=== PATIENT | female | born 1935 | race Caucasian/White ===

== ENCOUNTER 2016-10-12 07:47 | Day surgery (SDC) | payer MEDICARE, OTHER ==
[~2016-10-12 07:47] MED LIST: Brimonidine 0.2% Ophth Soln 5 ML Bottle ONE; Cataract Ophth Solution EYERT PRN; Hypromellose 2.5% Ophth Soln 15 ML Bottle EYERT PRN; Lactated Ringers 1,000 ML IV SCH; Lidocaine 1% 2 ML ONE; Lidocaine 3.5% Ophth Gel 1 ML Bottle ONE; Povidone-Iodine 5% Sterile Ophth Soln 30 ML Bottle ONE
[2016-10-12] MEDS: Proparacaine 0.5% Ophth Soln 15 ML Bottle EYERT PRN ×2 (08:15→09:46)
[2016-10-12] MEDS ORDERED: Midazolam 1 MG/ML 2 ML SDV ONE (09:11)
[2016-10-12] MEDS ORDERED: Lidocaine 1% PF 2 ML SDV INJECT ONE (09:46)
[2016-10-12] MEDS ORDERED: Moxifloxacin 0.5% Ophth Soln 3 ML Bottle EYERT ONE (09:47)
[2016-10-12] MEDS ORDERED: Chondroitin Sulfate/Hyaluronate Sodium Ophth Inj 0.5 ML Syringe IOCULAR ONE (09:47)
[2016-10-12] MEDS ORDERED: Balanced Salt Solution Ophth Irrig 500 ML Bottle IOCULAR ONE (09:48)
[2016-10-12] MEDS ORDERED: Vancomycin 500 MG SDV EYERT ONE (09:48)
[2016-10-12 10:23] VITALS: BP 156/71
--- NOTE | 2016-10-12 12:35 | OR ---
PREOPERATIVE DIAGNOSIS: Senile nuclear cataract, right eye. POSTOPERATIVE DIAGNOSIS: Pseudophakia, right eye. PROCEDURE PERFORMED: Cataract extraction with intraocular lens implantation by phacoemulsification technique, right eye. ANESTHESIA: Topical anesthesia. ESTIMATED BLOOD LOSS: None. COMPLICATIONS: None. INDICATIONS: The patient is a 81-year-old female who was found to have a senile nuclear cataract, reducing her best corrected visual acuity. After explaining the risks, benefits, and alternatives of cataract surgery, an informed consent was obtained. DESCRIPTION OF PROCEDURE: After identifying the patient in the preoperative area, the patient was brought to the operating room. The patient was prepped and draped in a sterile fashion. A lid speculum was inserted into the eye. The microscope was brought into the field. Lidocaine gel was applied to the external surface of the eye. A paracentesis was made 3 clock hours away from the surgeon's operating hand. The anterior chamber was anesthetized with preservative-free Lidocaine. The anterior chamber was filled with Viscoat. A clear corneal incision was made at the 180-degree meridian with a 2.75 mm keratome. A continuous tear circular capsulorrhexis was performed. The nucleus was hydrodissected with balanced salt solution. The nucleus was sculpted and removed from the eye using a divide and conquer technique with the phacoemulsification handpiece. The residual viscoelastic was removed with the I/A handpiece. The anterior chamber and capsular bag were filled with Amvisc. An ELSIE lens, model PCB00 with a power of 18.5 Diopters and a serial number of [id number] was injected into the capsular bag. The lens was rotated completely into the capsular bag with a Sinskey hook. The residual viscoelastic was removed with the I/A handpiece. The anterior chamber was filled with balanced salt solution to a physiologic pressure. The corneal wound was closed with stromal hydration and seen to be water tight by Weck-Lorena sponge testing. The patient received a drop of Zymar and Alphagan at the end of the case. There were no complications of this case. The patient will be followed postoperatively by Dr. Sara Hernandez. SKA: 10/12/2016 10:02:17 MODL: 10/12/2016 12:26:36 /[id number]
== END 2016-10-12 10:40 | disposition home or self-care (01) ==
LOC: VM.SDS 07:47
PROVIDERS: ATTEND Ophthalmology
DX: H25.11 Age-related nuclear cataract, right eye (principal); Z96.1 Presence of intraocular lens; I10 Essential (primary) hypertension; E03.9 Hypothyroidism, unspecified; E78.5 Hyperlipidemia, unspecified; Z79.899 Other long term (current) drug therapy; Z88.8 Allergy status to other drugs, medicaments and biological substances; F33.0 Major depressive disorder, recurrent, mild; R73.9 Hyperglycemia, unspecified; E55.9 Vitamin D deficiency, unspecified; E87.1 Hypo-osmolality and hyponatremia; Z90.49 Acquired absence of other specified parts of digestive tract; Z98.890 Other specified postprocedural states
CPT/HCPCS: 00142; 66984; A9270; J2250; J3370; J7120; V2632

== ENCOUNTER 2016-11-09 12:26 | Day surgery (SDC) | payer MEDICARE, OTHER ==
[~2016-11-09 12:26] MED LIST changes: +Cataract Ophth Solution EYELF PRN; -Cataract Ophth Solution EYERT PRN; +Hypromellose 2.5% Ophth Soln 15 ML Bottle EYELF PRN; -Hypromellose 2.5% Ophth Soln 15 ML Bottle EYERT PRN; -Lactated Ringers 1,000 ML IV SCH; +Sodium Chloride 0.9% 10 ML Syringe FLUSH PRN
[2016-11-09] MEDS: Proparacaine 0.5% Ophth Soln 15 ML Bottle EYELF PRN ×2 (12:50→14:36)
[2016-11-09] MEDS ORDERED: Lidocaine 1% PF 2 ML SDV INFILT ONE (14:36)
[2016-11-09] MEDS ORDERED: Moxifloxacin 0.5% Ophth Soln 3 ML Bottle EYELF ONE (14:38)
[2016-11-09] MEDS ORDERED: Chondroitin Sulfate/Hyaluronate Sodium Ophth Inj 0.5 ML Syringe IOCULAR ONE (14:38)
[2016-11-09] MEDS ORDERED: Balanced Salt Solution Ophth Irrig 500 ML Bottle IOCULAR ONE (14:39)
[2016-11-09] MEDS ORDERED: Vancomycin 500 MG SDV EYELF ONE (14:39)
[2016-11-09] MEDS ORDERED: Midazolam 1 MG/ML 2 ML SDV ONE (14:43)
[2016-11-09 15:39] VITALS: BP 150/62
--- NOTE | 2016-11-09 22:16 | OR ---
PREOPERATIVE DIAGNOSIS: Senile nuclear cataract, left eye. POSTOPERATIVE DIAGNOSIS: Pseudophakia, left eye. PROCEDURE PERFORMED: Cataract extraction with intraocular lens implantation by phacoemulsification technique, left eye. ANESTHESIA: Topical anesthesia. BLOOD LOSS: None. COMPLICATIONS: None. INDICATIONS: The patient is a 81-year-old female, who was found to have a senile nuclear cataract reducing her best corrected visual acuity. After explaining the risks, benefits, and alternatives of cataract surgery, an informed consent was obtained. DESCRIPTION OF PROCEDURE: After identifying the patient in the preoperative area, the patient was brought to the operating room. The patient was prepped and draped in a sterile fashion. A lid speculum was inserted into the eye. The microscope was brought into the field. Lidocaine gel was applied to the external surface of the eye. A paracentesis was made 3 clock hours away from the surgeon's operating hand. The anterior chamber was anesthetized with preservative-free Lidocaine. The anterior chamber was filled with Viscoat. A clear corneal incision was made at the 180-degree meridian with a 2.75mm keratome. A continuous tear circular capsulorrhexis was performed. The nucleus was hydrodissected with balanced salt solution. The nucleus was sculpted and removed from the eye using a divide and conquer technique with the phacoemulsification handpiece. The residual viscoelastic was removed with the I/A handpiece. The anterior chamber and capsular bag were filled with Amvisc. An ELSIE lens, model ZCB00 with a power of 17.5 Diopters and a serial number of [id number] was injected into the capsular bag. The lens was rotated completely into the capsular bag with a Sinskey hook. The residual viscoelastic was removed with the I/A handpiece. The anterior chamber was filled with balanced salt solution to a physiologic pressure. The corneal wound was closed with stromal hydration and seen to be water tight by Weck-Lorena sponge testing. The patient received a drop of Zymar and Alphagan at the end of the case. There were no complications of this case. The patient will be followed postoperatively by Dr. Sara Hernandez. SKA: 11/09/2016 15:04:53 MODL: 11/09/2016 22:11:59 /[id number]
== END 2016-11-09 15:30 | disposition home or self-care (01) ==
LOC: VM.SDS 12:26
PROVIDERS: ATTEND Ophthalmology
DX: H25.12 Age-related nuclear cataract, left eye (principal); I10 Essential (primary) hypertension; E03.9 Hypothyroidism, unspecified; F32.9 Major depressive disorder, single episode, unspecified; E78.5 Hyperlipidemia, unspecified; K21.9 Gastro-esophageal reflux disease without esophagitis; Z96.1 Presence of intraocular lens; Z88.1 Allergy status to other antibiotic agents; Z88.2 Allergy status to sulfonamides; Z88.8 Allergy status to other drugs, medicaments and biological substances; Z91.041 Radiographic dye allergy status; Z90.49 Acquired absence of other specified parts of digestive tract; Z98.890 Other specified postprocedural states
CPT/HCPCS: 00142; 66984; A9270; J2250; J3370; V2632

== ENCOUNTER 2016-11-24 06:52 | Day surgery (SDC) | payer MEDICARE, OTHER ==
[~2016-11-24 06:52] MED LIST changes: -Brimonidine 0.2% Ophth Soln 5 ML Bottle ONE; -Cataract Ophth Solution EYELF PRN; -Hypromellose 2.5% Ophth Soln 15 ML Bottle EYELF PRN; +Lactated Ringers 1,000 ML IV SCH; -Lidocaine 1% 2 ML ONE; -Lidocaine 3.5% Ophth Gel 1 ML Bottle ONE; -Povidone-Iodine 5% Sterile Ophth Soln 30 ML Bottle ONE; -Sodium Chloride 0.9% 10 ML Syringe FLUSH PRN
[2016-11-24] MEDS ORDERED: Albuterol/Ipratropium 3.0-0.5 MG/3 ML Neb Soln NEB ONE (07:41)
[2016-11-24] MEDS ORDERED: fentaNYL 100 MCG/2 ML SDV ONE (07:56)
[2016-11-24] MEDS ORDERED: Propofol 200 MG/20 ML SDV ONE (07:56)
[2016-11-24 10:06] VITALS: BP 149/57
--- NOTE | 2016-11-24 14:18 | OR ---
DATE OF SURGERY: 11/24/2016. REFERRING PROVIDER: Cynthia Hargrove MD. PRE-OPERATIVE DIAGNOSES: History of colon polyps. The patient does have history of 2 larger sessile polyps at 120 cm and 80 cm from the anal verge. I had previously done colonoscopies on her on 11/20/2014 and 05/21/2015. These reports were reviewed. The patient is status post right hemicolectomy with Dr. Lewis on 07/27/2015 for these larger sessile polyps. No family history of colon cancer. POST-OPERATIVE DIAGNOSES: 1. Significant left-sided diverticulosis without any evidence of inflammation. 2. Moderate hemorrhoids internal and external. 3. Normal right-sided ileocolonic anastomosis. PROCEDURE: Colonoscopy. SURGEON: Frandy Harry M.D. ANESTHESIA: Monitored anesthesia care. BOWEL PREP: Good. DESCRIPTION OF OPERATION: Honey is a 81-year-old female. The patient was brought to the endoscopy suite after discussing risks and benefits of the procedure. Informed consent was obtained for conscious sedation and colonoscopy with or without biopsy and/or polypectomy. We also discussed possibility of missed lesions. Pre-procedure exam was unremarkable. IV, oxygen, and monitors were placed. The patient was placed in the left lateral decubitus position. Sedation was administered and a digital rectal exam performed and was remarkable for some moderate external hemorrhoids. These were not acutely inflamed. Colonoscope was passed into the rectum and slowly advanced all the way to the ileocolic anastomosis on the right side. The ileocolic anastomosis was viewed and photographed. The distal small intestine mucosa was normal as well. The colonoscope was slowly withdrawn and the mucosa was closed observed in a direct circumferential manner. Ascending colon was unremarkable. Transverse colon was unremarkable. The descending and sigmoid colon were remarkable for significant diverticulosis. Retroflexion was performed. Rectal mucosa was remarkable for moderate internal hemorrhoids, not acutely inflamed. Scope was removed. The patient tolerated the procedure well. The patient was monitored until that baseline status. Discharge instructions were reviewed and the patient was discharged in good condition. COMPLICATIONS: None. TOTAL TIME: 15 minutes. ESTIMATED BLOOD LOSS: None. RECOMMENDATIONS/FOLLOWUP: Given her history of 2 larger sessile polyps requiring right hemicolectomy, we could consider repeating colonoscopy in 3 years depending on her health status and the patient preference at that time. I would like to kindly thank Dr. Hargrove for this referral. DMB: 11/24/2016 11:54:36 MODL: 11/24/2016 14:12:43 /[id number]
== END 2016-11-24 11:16 | disposition home or self-care (01) ==
LOC: VM.SDS 06:52
PROVIDERS: ATTEND Family Medicine
DX: Z12.11 Encounter for screening for malignant neoplasm of colon (principal); Z86.010 Personal history of colon polyps; K64.4 Residual hemorrhoidal skin tags; K64.8 Other hemorrhoids; K57.30 Diverticulosis of large intestine without perforation or abscess without bleeding; Z88.1 Allergy status to other antibiotic agents; Z88.2 Allergy status to sulfonamides; Z88.8 Allergy status to other drugs, medicaments and biological substances; Z91.041 Radiographic dye allergy status; I10 Essential (primary) hypertension; J45.20 Mild intermittent asthma, uncomplicated; E03.9 Hypothyroidism, unspecified; E78.5 Hyperlipidemia, unspecified; F33.0 Major depressive disorder, recurrent, mild; R73.9 Hyperglycemia, unspecified; E55.9 Vitamin D deficiency, unspecified; Z79.899 Other long term (current) drug therapy; K21.9 Gastro-esophageal reflux disease without esophagitis; Z90.49 Acquired absence of other specified parts of digestive tract; Z98.890 Other specified postprocedural states
CPT/HCPCS: 94640; G0105; J2704; J3010; J7120; 00810

== ENCOUNTER 2016-12-03 19:10 | Emergency (ER) | payer MEDICARE, OTHER ==
[2016-12-03 19:16] VITALS: BP 166/90
[2016-12-03] MEDS ORDERED: Ketorolac 10 MG Tab PO ONE (19:27)
[2016-12-03] MEDS ORDERED: traMADol 50 MG Tab PO ONE (19:27)
--- NOTE | 2016-12-03 19:41 | EDM.PDOC ---
ED HPI GENERAL MEDICAL PROBLEM - General Chief Complaint: Lower Extremity Injury/Pain Stated Complaint: left ankle pain Time Seen by Provider: 12/03/16 19:20 Source of Information: Reports: Patient History Limitations: Reports: No Limitations - History of Present Illness INITIAL COMMENTS - FREE TEXT/NARRATIVE: Patient presents after falling in her bathroom. She fell onto her left ankle. It is bruised and swollen. She has no other complaints. She denies hitting her head or a loss of consciousness. Reduced range of motion. Onset: Today Location: Reports: Lower Extremity, Left Quality: Reports: Ache, Sharp Severity: Moderate Worsens with: Reports: Movement Associated Symptoms: Reports: No Other Symptoms Left Ankle Pain Score (Numeric/FACES): 4 - Related Data Allergies Allergy/AdvReac Type Severity Reaction Status Date / Time amoxicillin trihydrate Allergy Other Verified 12/03/16 19:21 [From Augmentin] erythromycin base Allergy Other Verified 12/03/16 19:21 potassium Allergy Other Verified 12/03/16 19:21 potassium clavulanate Allergy Other Verified 12/03/16 19:21 [From Augmentin] sulfamethoxazole Allergy Rash Verified 12/03/16 19:21 [From Bactrim] trimethoprim [From Bactrim] Allergy Rash Verified 12/03/16 19:21 yellow dye Allergy Other Verified 12/03/16 19:21 Home Meds: Home Meds Bisoprolol Fumarate/HCTZ [Ziac 5-6.25 MG] 1 tab PO DAILY 01/21/14 [History] Levothyroxine [Synthroid] 50 mcg PO ACBRK 01/21/14 [History] atorvaSTATin [Lipitor] 10 mg PO BEDTIME 01/21/14 [History] FLUoxetine [PROzac] 20 mg PO DAILY 01/25/14 [History] Cholecalciferol (Vitamin D3) [Vitamin D3] 1 cap PO DAILY 11/14/14 [History] Albuterol/Ipratropium [DuoNeb 3.0-0.5 MG/3 ML] 3 ml INH QID PRN 10/07/16 [ History] Cranberry Extract/Vit C [Azo Cranberry Softgel] 1 each PO DAILY 12/03/16 [ History] Fluticasone/Vilanterol [Breo Ellipta 100-25 MCG Inhalation Kit] 1 each IH ASDIRECTED 12/03/16 [History] Ibuprofen [Advil] 1 - 3 tab PO TID PRN 12/03/16 [History] Propylene Glycol/PEG 400/Pf [Systane Ultra 0.4-0.3% Eye Drp] 1 each OP ASDIRECTED 12/03/16 [History] Past Medical History HEENT History: Reports: Cataract Other HEENT History: nasal polyps Cardiovascular History: Reports: Blood Clots/VTE/DVT, High Cholesterol, Hypertension Other Cardiovascular History: vericose veins, hyponatremia Respiratory History: Reports: Asthma, Bronchitis, Recurrent Gastrointestinal History: Reports: Colon Polyp, Diverticulosis, GERD Other Gastrointestinal History: hx colon polyps. liver function Genitourinary History: Reports: Urinary Incontinence B[employer] W[employer]ER TENDER History: Reports: None Musculoskeletal History: Reports: Arthritis, Back Pain, Chronic Neurological History: Reports: Other (See Below) Other Neuro History: insomnia Psychiatric History: Reports: Depression, Other (See Below) Other Psychiatric History: insomnia Endocrine/Metabolic History: Reports: Hypothyroidism, Vitamin D Deficiency, Other (See Below) Other Endocrine/Metabolic History: hyperglycemia Hematologic History: Reports: Other (See Below) Other Hematologic History: thrombophlebitits Immunologic History: Reports: None Oncologic (Cancer) History: Reports: None Dermatologic History: Reports: Eczema - Past Surgical History Head Surgeries/Procedures: Reports: None HEENT Surgical History: Reports: Adenoidectomy, Tonsillectomy, Other (See Below) Other HEENT Surgeries/Procedures: nasal polyps Cardiovascular Surgical History: Reports: None Respiratory Surgical History: Reports: None GI Surgical History: Reports: Cholecystectomy, Colon, Colonoscopy Female Surgical History: Reports: None Endocrine Surgical History: Reports: None Neurological Surgical History: Reports: None, Other (See Below) Other Neurological Surgeries/Procedures: L5 radiculopathy Musculoskeletal Surgical History: Reports: Hip Replacement Other Musculoskeletal Surgeries/Procedures:: trigger finger release Oncologic Surgical History: Reports: None Dermatological Surgical History: Reports: None Social & Family History - Tobacco Use Smoking Status *Q: Never Smoker Second Hand Smoke Exposure: No - Alcohol Use Days Per Week of Alcohol Use: 0 - Recreational Drug Use Recreational Drug Use: No Drug Use in Last 12 Months: No Review of Systems - Review of Systems Review Of Systems: ROS reveals no pertinent complaints other than HPI. ED EXAM, GENERAL - Physical Exam Exam: See Below Exam Limited By: No Limitations General Appearance: Alert, WD/WN, Mild Distress Eye Exam: Bilateral Eye: EOMI, PERRL Head: Atraumatic, Normocephalic Neck: Normal Inspection Peripheral Pulses: 2+: Posterior Tibial (L), Posterior Tibial (R), Dorsalis Pedis (L), Dorsalis Pedis (R) Extremities: Pedal Edema, Joint Swelling, Leg Pain (left ankle) Neurological: Alert, Oriented, CN II-XII Intact, Normal Cognition, No Motor/ Sensory Deficits Psychiatric: Normal Affect, Normal Mood Course - Vital Signs Last Recorded V/S: Last Vital Signs Temp 37.4 C 12/03/16 19:12 Pulse 65 12/03/16 19:12 Resp 20 12/03/16 19:12 BP 166/90 H 12/03/16 19:12 Pulse Ox 94 L 12/03/16 19:12 - Orders/Labs/Meds Orders: Active Orders 24 hr Category Date Time Status Ankle Min 3V Lt [CR] Stat Exams 12/03/16 19:26 Ordered Ketorolac [Toradol] Med 12/03/16 19:27 Once 10 mg PO ONETIME ONE traMADol [Ultram] Med 12/03/16 19:27 Once 100 mg PO ONETIME ONE Meds: Medications Discontinued Medications Generic Name Dose Route Start Last Admin Trade Name Freq PRN Reason Stop Dose Admin Ketorolac Tromethamine 10 mg 12/03/16 19:27 Toradol PO 12/03/16 19:28 ONETIME ONE Tramadol HCl 100 mg 12/03/16 19:27 Ultram PO 12/03/16 19:28 ONETIME ONE - Radiology Interpretation Free Text/Narrative:: review of x-ray with Dr. Fernando from [facility]. Agreed on plan to stirrup splint, and follow up with ortho or podiatry this week. Departure - Departure Time of Disposition: 20:44 Disposition: Home, Self-Care 01 Condition: Good Clinical Impression: Fx lateral malleolus-closed - Discharge Information Instructions: Cast or Splint Care, [id number], Ankle Fracture, [id number] Forms: ED Department Discharge Additional Instructions: You have a left lateral malleolus fracture. Keep it elevated, put ice on the area and keep your splint dry. Take your hydrocodone 1 tablet every 4-6 hours for your pain. You can also take ibuprofen or aleve. Use your walker to get around your apartment and make sure all floor rugs are picked to reduce your risk of falling. You are to call [facility] on Monday to schedule an appointment with either one of the orthopedic doctors or a story editor. Depending on who can see you this week. The oncall doctor I spoke with today was Dr. Fernando. If you develop pain that is not controlled, and severe from now until your appointment, make sure to come back in for evaluation. [facility] Orthopedic clinic: [phone] [facility] Podiatry clinic: [phone] - Problem List & Annotations (1) Fx lateral malleolus-closed SNOMED Code(s): 92346358 Code(s): S82.63XA - DISP FX OF LATERAL MALLEOLUS OF UNSP FIBULA, INIT Status: Acute Priority: Low Current Visit: Yes Qualifiers: Encounter type: initial encounter Fracture alignment: displaced Laterality: left Qualified Code(s): S82.62XA - Displaced fracture of lateral malleolus of left fibula, initial encounter for closed fracture - Problem List Review Problem List Initiated/Reviewed/Updated: Yes - My Orders Last 24 Hours: My Active Orders 12/03/16 19:26 Ankle Min 3V Lt [CR] Stat 12/03/16 19:27 Ketorolac [Toradol] 10 mg PO ONETIME ONE traMADol [Ultram] 100 mg PO ONETIME ONE - Assessment/Plan Last 24 Hours: My Active Orders 12/03/16 19:26 Ankle Min 3V Lt [CR] Stat 12/03/16 19:27 Ketorolac [Toradol] 10 mg PO ONETIME ONE traMADol [Ultram] 100 mg PO ONETIME ONE Assessment:: left lateral malleolus fracture Plan: You have a left lateral malleolus fracture. Keep it elevated, put ice on the area and keep your splint dry. Take your hydrocodone 1 tablet every 4-6 hours for your pain. You can also take ibuprofen or aleve. Use your walker to get around your apartment and make sure all floor rugs are picked to reduce your risk of falling. You are to call [facility] on Monday to schedule an appointment with either one of the orthopedic doctors or a story editor. Depending on who can see you this week. The oncall doctor I spoke with today was Dr. Fernando. If you develop pain that is not controlled, and severe from now until your appointment, make sure to come back in for evaluation. [facility] Orthopedic clinic: [phone] [facility] Podiatry clinic: [phone]
[2016-12-03] MEDS ORDERED: Take Home: Acetaminophen/oxyCODONE 325-5 MG, 5 Tab Pack PO ONE (20:35)
== END 2016-12-03 20:50 | disposition home or self-care (01) ==
LOC: VM.ED 19:10
DX: S82.62XA Displaced fracture of lateral malleolus of left fibula, initial encounter for closed fracture (principal); E78.00 Pure hypercholesterolemia, unspecified; I10 Essential (primary) hypertension; J45.909 Unspecified asthma, uncomplicated; K21.9 Gastro-esophageal reflux disease without esophagitis; E03.9 Hypothyroidism, unspecified; F32.9 Major depressive disorder, single episode, unspecified; Z90.49 Acquired absence of other specified parts of digestive tract; Z96.649 Presence of unspecified artificial hip joint; Z88.1 Allergy status to other antibiotic agents; Z88.2 Allergy status to sulfonamides; Z88.8 Allergy status to other drugs, medicaments and biological substances; Z91.041 Radiographic dye allergy status; Z79.899 Other long term (current) drug therapy; W19.XXXA Unspecified fall, initial encounter; Y92.002 Bathroom of unspecified non-institutional (private) residence as the place of occurrence of the external cause
CPT/HCPCS: 29515; 73610; 99283; A9270

== ENCOUNTER 2016-12-20 15:16 | Emergency (ER) | payer MEDICARE, OTHER ==
--- NOTE | 2016-12-20 15:48 | EDM.PDOC ---
ED HPI GENERAL MEDICAL PROBLEM - General Chief Complaint: ENT Problem Stated Complaint: THROAT Time Seen by Provider: 12/20/16 15:18 Source of Information: Reports: Patient, Family, RN, RN Notes Reviewed History Limitations: Reports: No Limitations - History of Present Illness INITIAL COMMENTS - FREE TEXT/NARRATIVE: Patient is brought to the ED at [facility] with possible oral thrush. Patient was recently started on Breo inhaler three days ago. Patient noticed white spots on her tongue and upper palate. Onset: Today - Related Data Allergies Allergy/AdvReac Type Severity Reaction Status Date / Time amoxicillin trihydrate Allergy Other Verified 12/20/16 15:26 [From Augmentin] erythromycin base Allergy Other Verified 12/20/16 15:26 potassium Allergy Other Verified 12/20/16 15:26 potassium clavulanate Allergy Other Verified 12/20/16 15:26 [From Augmentin] sulfamethoxazole Allergy Rash Verified 12/03/16 19:21 [From Bactrim] trimethoprim [From Bactrim] Allergy Rash Verified 12/03/16 19:21 yellow dye Allergy Other Verified 12/03/16 19:21 Home Meds: Home Meds Bisoprolol Fumarate/HCTZ [Ziac 5-6.25 MG] 1 tab PO DAILY 01/21/14 [History] Levothyroxine [Synthroid] 50 mcg PO ACBRK 01/21/14 [History] atorvaSTATin [Lipitor] 10 mg PO BEDTIME 01/21/14 [History] FLUoxetine [PROzac] 20 mg PO DAILY 01/25/14 [History] Cholecalciferol (Vitamin D3) [Vitamin D3] 1 cap PO DAILY 11/14/14 [History] Albuterol/Ipratropium [DuoNeb 3.0-0.5 MG/3 ML] 3 ml INH QID PRN 10/07/16 [ History] Cranberry Extract/Vit C [Azo Cranberry Softgel] 1 each PO DAILY 12/03/16 [ History] Fluticasone/Vilanterol [Breo Ellipta 100-25 MCG Inhalation Kit] 1 each IH ASDIRECTED 12/03/16 [History] Ibuprofen [Advil] 1 - 3 tab PO TID PRN 12/03/16 [History] Propylene Glycol/PEG 400/Pf [Systane Ultra 0.4-0.3% Eye Drp] 1 each OP ASDIRECTED 12/03/16 [History] Nystatin [Mycostatin] 5 ml PO QID #40 cup 12/20/16 [Rx] Past Medical History HEENT History: Reports: Cataract Other HEENT History: nasal polyps Cardiovascular History: Reports: Blood Clots/VTE/DVT, High Cholesterol, Hypertension Other Cardiovascular History: vericose veins, hyponatremia Respiratory History: Reports: Asthma, Bronchitis, Recurrent Gastrointestinal History: Reports: Colon Polyp, Diverticulosis, GERD Other Gastrointestinal History: hx colon polyps. liver function Genitourinary History: Reports: Urinary Incontinence GLOVE CLEANER History: Reports: None Musculoskeletal History: Reports: Arthritis, Back Pain, Chronic Neurological History: Reports: Other (See Below) Other Neuro History: insomnia Psychiatric History: Reports: Depression, Other (See Below) Other Psychiatric History: insomnia Endocrine/Metabolic History: Reports: Hypothyroidism, Vitamin D Deficiency, Other (See Below) Other Endocrine/Metabolic History: hyperglycemia Hematologic History: Reports: Other (See Below) Other Hematologic History: thrombophlebitits Immunologic History: Reports: None Oncologic (Cancer) History: Reports: None Dermatologic History: Reports: Eczema - Past Surgical History Head Surgeries/Procedures: Reports: None HEENT Surgical History: Reports: Adenoidectomy, Tonsillectomy, Other (See Below) Other HEENT Surgeries/Procedures: nasal polyps GI Surgical History: Reports: Cholecystectomy, Colon, Colonoscopy Neurological Surgical History: Reports: Other (See Below) Other Neurological Surgeries/Procedures: L5 radiculopathy Musculoskeletal Surgical History: Reports: Hip Replacement Other Musculoskeletal Surgeries/Procedures:: trigger finger release Oncologic Surgical History: Reports: None Social & Family History - Tobacco Use Smoking Status *Q: Unknown Ever Smoked Second Hand Smoke Exposure: No - Alcohol Use Days Per Week of Alcohol Use: 0 - Recreational Drug Use Recreational Drug Use: No Drug Use in Last 12 Months: No ED ROS ENT - Review of Systems Review Of Systems: See Below Constitutional: Denies: Fever, Chills, Weakness HEENT: Reports: Other (white patches in throat) Respiratory: Denies: Shortness of Breath, Cough Skin: Reports: No Symptoms Neurological: Reports: No Symptoms ED EXAM, ENT - Physical Exam Exam: See Below Exam Limited By: No Limitations General Appearance: Alert, No Apparent Distress Mouth/Throat: Dry Mucous Membrane, Other (grouped white patches over tongue and left upper palate consistent with oral candidiasis) Respiratory/Chest: No Respiratory Distress, Lungs Clear, Normal Breath Sounds Cardiovascular: Regular Rate, Rhythm Neurological: Alert, Oriented Skin: Warm, Dry, Intact, Normal Color, No Rash Course - Vital Signs Last Recorded V/S: Last Vital Signs Temp 36.5 C 12/20/16 15:18 Pulse 64 12/20/16 15:18 Resp 14 12/20/16 15:18 BP 144/58 H 12/20/16 15:18 Pulse Ox 97 12/20/16 15:18 Departure - Departure Time of Disposition: 15:58 Disposition: Home, Self-Care 01 Condition: Good Clinical Impression: Oral candidiasis - Discharge Information Prescriptions: Nystatin [Mycostatin] 5 ml PO QID #40 cup Instructions: Thrush, Adult Referrals: Cynthia Hargrove MD [Primary Care Provider] - Forms: ED Department Discharge Additional Instructions: 1. Stay well hydrated and rest 2. Use swish and swallow medication 4 times a day 3. Buy a new toothbrush 4. Rinse and clean breathing containers 5. See your Primary as needed - Problem List Review Problem List Initiated/Reviewed/Updated: Yes
== END 2016-12-20 16:15 | disposition home or self-care (01) ==
LOC: VM.ED 15:16
CPT/HCPCS: 99282; 99282-GF

== ENCOUNTER 2020-07-11 09:35 | Observation (INO) | payer MEDICARE, OTHER ==
[2020-07-11] MEDS ORDERED: Acetaminophen 500 MG Tab PO ONE (09:58)
[2020-07-11] MEDS ORDERED: cloNIDine 0.1 MG Tab PO ONE (10:16)
[2020-07-11 10:41] LABS: CHLORIDE,CL 93 mmol/L (98-107)
[2020-07-11 10:42] LABS: ANION GAP 13.2 mmol/L (5-15); SODIUM,NA 128 mmol/L (136-145)
--- NOTE | 2020-07-11 10:42 | EDM.PDOC ---
ED HPI GENERAL MEDICAL PROBLEM - General Chief Complaint: Headache Stated Complaint: HEADACHES Time Seen by Provider: 07/11/20 09:45 Source of Information: Reports: Patient History Limitations: Reports: No Limitations - History of Present Illness INITIAL COMMENTS - FREE TEXT/NARRATIVE: Pt. presents to ER with complaints of headache for the past month. Pt. states that it is frontal in nature, but also complains of lateral cervical/occipital pain as well. She has had a telehealth visit for this earlier this month. She had a covid test at that time with no futher workup. She has not had her blood pressure checked for some time. Pt. denies any nausea or vomiting. She states that she has no new focal neuro symptoms. She chronically had some paresthesia in her R hand likely due to carpal tunnel or other peripheral ideology, but this has been going on for some time. Denies any new paresthesia in face or extremities. She states that her gait and speech are normal (daughter affirms this). Pt. states that the discomfort is intermittent in nature. Today, her pain is approx. 3 on 1-10 scale. She has taken tylenol for this and it has helped. She denies any chest pain, shortness of breath, lightheadedness, nausea, vomiting, diarrhea. She states that she has been more fatigued in the past several months. Headache Pain Score (Numeric/FACES): 3 - Related Data Allergies Allergy/AdvReac Type Severity Reaction Status Date / Time amoxicillin trihydrate Allergy Other Verified 07/11/20 11:06 [From Augmentin] erythromycin base Allergy Other Verified 07/11/20 11:06 potassium Allergy Other Verified 07/11/20 11:06 potassium clavulanate Allergy Other Verified 07/11/20 11:06 [From Augmentin] sulfamethoxazole Allergy Rash Verified 07/11/20 11:06 [From Bactrim] trimethoprim [From Bactrim] Allergy Rash Verified 07/11/20 11:06 yellow dye Allergy Other Verified 07/11/20 11:06 Home Meds: Home Meds Bisoprolol/Hydrochlorothiazide [Ziac 5-6.25 MG] 1 tab PO DAILY 01/21/14 [History] Levothyroxine [Synthroid] 75 mcg PO ACBRK 01/21/14 [History] atorvaSTATin [Lipitor] 10 mg PO BEDTIME 01/21/14 [History] FLUoxetine [PROzac] 20 mg PO DAILY 01/25/14 [History] Cholecalciferol (Vitamin D3) [Vitamin D3] 1 cap PO DAILY 11/14/14 [History] Albuterol/Ipratropium [DuoNeb 3.0-0.5 MG/3 ML] 3 ml INH QID 10/07/16 [History] Fluticasone/Vilanterol [Breo Ellipta 100-25 MCG Inhalation Kit] 1 each IH DAILY 12/03/16 [History] Ibuprofen [Advil] 1 - 3 tab PO TID PRN 12/03/16 [History] Propylene Glycol/PEG 400/Pf [Systane Ultra 0.4-0.3% Eye Drp] 1 drop EYELF BID 12/03/16 [History] Loratadine [Claritin] 10 mg PO DAILY PRN 07/11/20 [History] Past Medical History HEENT History: Reports: Cataract Other HEENT History: nasal polyps Cardiovascular History: Reports: Blood Clots/VTE/DVT, High Cholesterol, Hypertension Other Cardiovascular History: vericose veins, hyponatremia Respiratory History: Reports: Asthma, Bronchitis, Recurrent Gastrointestinal History: Reports: Colon Polyp, Diverticulosis, GERD Other Gastrointestinal History: hx colon polyps. 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 Musculoskeletal History: Reports: Arthritis, Back Pain, Chronic Neurological History: Reports: Other (See Below) Other Neuro History: insomnia Psychiatric History: Reports: Depression, Other (See Below) Other Psychiatric History: insomnia Endocrine/Metabolic History: Reports: Hypothyroidism, Vitamin D Deficiency, Other (See Below) Other Endocrine/Metabolic History: hyperglycemia Hematologic History: Reports: Other (See Below) Other Hematologic History: thrombophlebitits Immunologic History: Reports: None Oncologic (Cancer) History: Reports: None Dermatologic History: Reports: Eczema - Past Surgical History HEENT Surgical History: Reports: Adenoidectomy, Tonsillectomy, Other (See Below) Other HEENT Surgeries/Procedures: nasal polyps Cardiovascular Surgical History: Reports: None GI Surgical History: Reports: Cholecystectomy, Colon, Colonoscopy Neurological Surgical History: Reports: Other (See Below) Other Neurological Surgeries/Procedures: L5 radiculopathy Musculoskeletal Surgical History: Reports: Hip Replacement Other Musculoskeletal Surgeries/Procedures:: trigger finger release Social & Family History - Tobacco Use Tobacco Use Status *Q: Never Tobacco User ED ROS GENERAL - Review of Systems Review Of Systems: See Below Constitutional: Reports: Fatigue. Denies: Fever, Chills, Malaise, Weakness, Night Sweats, Diaphoresis, Weight Loss HEENT: Reports: No Symptoms. Denies: Vertigo Respiratory: Reports: No Symptoms Cardiovascular: Reports: Blood Pressure Problem Endocrine: Reports: No Symptoms GI/Abdominal: Reports: No Symptoms : Reports: No Symptoms Musculoskeletal: Reports: No Symptoms Skin: Reports: No Symptoms Neurological: Reports: Headache, Tingling (chronically in R hand). Denies: Confusion, Dizziness, Numbness, Paresthesia, Seizure, Syncope Psychiatric: Reports: No Symptoms Hematologic/Lymphatic: Reports: No Symptoms Immunologic: Reports: No Symptoms ED EXAM, GENERAL - Physical Exam Exam: See Below Exam Limited By: No Limitations General Appearance: Alert, WD/WN, Anxious, Mild Distress Eye Exam: Bilateral Eye: EOMI, Normal Fundi, Normal Inspection, PERRL Nose: Normal Inspection, No Blood Throat/Mouth: Normal Inspection, Normal Lips, Normal Teeth, Normal Gums, Normal Oropharynx, Normal Voice, No Airway Compromise Head: Atraumatic, Normocephalic Neck: Normal Inspection, Non-Tender, Full Range of Motion, Other (muscle spasm/tightness to cervical spinal muscles. No midline tenderness.) Respiratory/Chest: No Respiratory Distress, Lungs Clear, Normal Breath Sounds, No Accessory Muscle Use, Chest Non-Tender Cardiovascular: Normal Peripheral Pulses, Regular Rate, Rhythm, No Edema, No JVD, No Murmur Peripheral Pulses: 4+: Radial (R) GI/Abdominal: Soft, Non-Tender, No Organomegaly, No Distention, No Mass (Female) Exam: Deferred Rectal (Female) Exam: Deferred Back Exam: Normal Inspection, Full Range of Motion Extremities: Normal Inspection, Normal Range of Motion, Non-Tender, No Pedal Edema, Normal Capillary Refill Neurological: Alert, Oriented, CN II-XII Intact, Normal Cognition, Normal Gait, No Motor/Sensory Deficits Psychiatric: Normal Mood, Anxious Skin Exam: Warm, Dry, Intact, Pallor Lymphatic: No Adenopathy #1 Interpretation Rhythm: NSR [place]: Normal P-Wave: Present QRS: Normal ST-T: Normal QT: Normal Comparison: No Change EKG Interpretation Comments: No significant change to EKG from 2018. No acute ST or T wave abnormality. Course - Vital Signs Last Recorded V/S: Last Vital Signs Temp 36.3 C 07/11/20 09:40 Pulse 63 07/11/20 09:40 Resp 16 07/11/20 09:40 BP 167/67 H 07/11/20 10:59 Pulse Ox 96 07/11/20 09:40 - Orders/Labs/Meds Orders: Active Orders 24 hr Category Date Time Status EKG Documentation Completion [RC] STAT Care 07/11/20 09:57 Active Sodium Chloride 0.9% [Saline Flush] Med 07/11/20 10:47 Active 10 ml FLUSH ASDIRECTED PRN Peripheral IV Insertion Adult [OM.PC] Routine Oth 07/11/20 10:47 Ordered Medication Orders Albuterol/Ipratropium (Duoneb 3.0-0.5 Mg/3 Ml) 3 ml INH QIDRT SHANAE Artificial Tears (Genteal Mild To Moderate Ophth Soln) 0 ml EYELF BID SHANAE Atorvastatin Calcium (Lipitor) 10 mg PO BEDTIME SHANAE Cholecalciferol (Vitamin D3) 50 mcg PO DAILY [facility] Cyclobenzaprine HCl (Flexeril) 5 mg PO BID PRN PRN Reason: Pain Fluoxetine HCl (Prozac) 20 mg PO DAILY [facility] Sodium Chloride (Normal Saline) 1,000 mls @ 125 mls/hr IV ASDIRECTED SHANAE Last Admin: 07/11/20 11:23 Dose: 125 mls/hr Documented by: GRIFFIN Ibuprofen (Motrin) 200 - 600 mg PO TID PRN PRN Reason: pain Levothyroxine Sodium (Levothyroxine) 75 mcg PO ACBRK SHANAE Lisinopril (Prinivil) 10 mg PO DAILY SHANAE Loratadine (Claritin) 10 mg PO DAILY PRN PRN Reason: Allergies Non-Formulary Medication (Fluticasone/Vilanterol) 1 each IH DAILY SHANAE Sodium Chloride (Saline Flush) 10 ml FLUSH ASDIRECTED PRN PRN Reason: Keep Vein Open Labs: Laboratory Tests 07/11/20 07/11/20 07/11/20 Range/Units 10:06 10:06 10:06 WBC 4.6 (4.0-10.0) x10^3/uL RBC 4.05 (4.00-5.50) x10^6/uL Hgb 12.6 D (12.0-16.0) g/dL Hct 36.8 (33.0-47.0) % MCV 90.9 D (78.0-93.0) fL MCH 31.1 (26.0-32.0) pg MCHC 34.2 (32.0-36.0) g/dL RDW Coeff of [place] 12.8 (10.0-15.0) % Plt Count 211 (130-400) x10^3/uL Neut % (Auto) 68.5 (50.0-80.0) % Lymph % (Auto) 16.9 L (25.0-50.0) % [place] % (Auto) 9.6 (2.0-11.0) % Eos % (Auto) 4.6 H (0.0-4.0) % Baso % (Auto) 0.4 (0.2-1.2) % PT 10.3 (9.5-12.3) SEC INR 0.9 L (2.0-3.5) Sodium 128 L* (136-145) mmol/L Potassium 4.2 (3.5-5.1) mmol/L Chloride 93 L (98-107) mmol/L Carbon Dioxide 26 (21-32) mmol/L Anion Gap 13.2 (5-15) mmol/L BUN 17 (7-18) mg/dL Creatinine 0.8 (0.55-1.02) mg/dL Est Cr Clr Drug Dosing TNP Estimated GFR (MDRD) > 60 Glucose 135 H (74-106) mg/dL Calcium 8.7 (8.5-10.1) mg/dL Corrected Calcium 9.18 (8.5-10.1) mg/dL Total Bilirubin 1.4 H (0.2-1.0) mg/dL AST 19 (15-37) U/L ALT 19 (14-59) U/L Alkaline Phosphatase 62 (46-116) U/L Troponin I < 0.017 (<=0.056) ng/mL Total Protein 6.5 (6.4-8.2) g/dL Albumin 3.4 (3.4-5.0) g/dL Globulin 3.1 Albumin/Globulin Ratio 1.10 TSH, Ultra Sensitive 1.997 (0.358-3.74) uIU/mL Meds: Medications Generic Name Dose Route Start Last Admin Trade Name Trev PRN Reason Stop Dose Admin Albuterol/Ipratropium 3 ml 07/11/20 11:00 Duoneb 3.0-0.5 Mg/3 Ml INH QIDRT SHANAE Artificial Tears 0 ml 07/11/20 20:00 Genteal Mild To Moderate Ophth Soln EYELF BID [facility] Atorvastatin Calcium 10 mg 07/11/20 20:00 Lipitor PO BEDTIME SHANAE Cholecalciferol 50 mcg 07/12/20 08:00 Vitamin D3 PO DAILY [facility] Cyclobenzaprine HCl 5 mg 07/11/20 11:36 Flexeril PO BID PRN Pain Fluoxetine HCl 20 mg 07/12/20 08:00 Prozac PO DAILY [facility] Sodium Chloride 1,000 mls @ 125 mls/hr 07/11/20 11:15 07/11/20 11:23 Normal Saline IV 125 mls/hr ASDIRECTED SHANAE Administration Ibuprofen 200 - 600 mg 07/11/20 11:23 Motrin PO TID PRN pain Levothyroxine Sodium 75 mcg 07/12/20 07:00 Levothyroxine PO ACBRK SHANAE Lisinopril 10 mg 07/11/20 11:30 Prinivil PO DAILY [facility] Loratadine 10 mg 07/11/20 11:23 Claritin PO DAILY PRN Allergies Non-Formulary Medication 1 each 07/12/20 08:00 Fluticasone/Vilanterol IH DAILY [facility] Sodium Chloride 10 ml 07/11/20 10:47 Saline Flush FLUSH ASDIRECTED PRN Keep Vein Open Discontinued Medications Generic Name Dose Route Start Last Admin Trade Name Trev PRN Reason Stop Dose Admin Acetaminophen 1,000 mg 07/11/20 09:58 07/11/20 10:10 Tylenol Extra Strength PO 07/11/20 09:59 1,000 mg ONETIME ONE Administration Clonidine HCl 0.2 mg 07/11/20 10:16 07/11/20 10:24 Catapres PO 07/11/20 10:17 0.2 mg ONETIME ONE Administration - Radiology Interpretation Free Text/Narrative:: CT brain without contrast obtained, negative for acute pathology. No obvious sinusitis noted. Departure - Departure Time of Disposition: 11:30 Disposition: Refer to Observation Clinical Impression: Hyponatremia, Hypertensive crisis, Tension headache - Discharge Information Sepsis Event Note (ED) - Evaluation Sepsis Screening Result: No Definite Risk - Focused Exam Vital Signs: Vital Signs Temp Pulse Resp BP BP Pulse Ox 07/11/20 10:59 167/67 H 07/11/20 10:24 196/84 H 07/11/20 10:10 196/84 H 07/11/20 09:40 36.3 C 63 16 204/81 H 96 - Problem List Review Problem List Initiated/Reviewed/Updated: Yes - My Orders Last 24 Hours: My Active Orders 07/11/20 09:57 EKG Documentation Completion [RC] STAT 07/11/20 10:47 Sodium Chloride 0.9% [Saline Flush] 10 ml FLUSH ASDIRECTED PRN Peripheral IV Insertion Adult [OM.PC] Routine - Assessment/Plan Last 24 Hours: My Active Orders 07/11/20 09:57 EKG Documentation Completion [RC] STAT 07/11/20 10:47 Sodium Chloride 0.9% [Saline Flush] 10 ml FLUSH ASDIRECTED PRN Peripheral IV Insertion Adult [OM.PC] Routine Plan: Pt. will be admitted observation. She is a code 1. CT of the patient's brain without contrast was negative. She was quite hypertensive on arrival to ER (s ystolic greater that 200mmHg) which is starting to come down after 0.2mg clonidine in ER. Pt. was found to be hyponatremic with a sodium of 128. It appears that this has been a problem in the past, and her sodium was 130 in 2017. She is on several medications that could be causing this, most likely cause in the Ziac, namely the HCTZ. Will stop this and start Lisinopril 10mg daily. Will slowly administer NS at 125mg/hr overnight. Recheck BMP in the AM. If her sodium normalizes and her blood pressure is well controlled during hospitalization, anticipate discharge in the AM. Discussed finding with daughter who agrees with plan of care.
[2020-07-11] MEDS ORDERED: Sodium Chloride 0.9% 10 ML Syringe FLUSH PRN (10:47)
[2020-07-11] MEDS ORDERED: Albuterol/Ipratropium 3.0-0.5 MG/3 ML Neb Soln INH SCH (11:00)
--- NOTE | 2020-07-11 11:04 | CT ---
[id number] CT/CT Head WO IV EXAM: CT Head WO IV CLINICAL DATA: HEADACHE COMPARISON: NO PREVIOUS SIMILAR EXAM IS AVAILABLE FOR COMPARISON. FINDINGS: There is no mass or mass effect. There is no hemorrhage or hydrocephalus. There are no extra-axial fluid collections. There are no sites of abnormal attenuation. IMPRESSION: NO PLAIN CT EVIDENCE OF ACUTE INTRACRANIAL PROCESS. Tera Durant MD 07/11/20 [id number] Thank you for allowing us to participate in the care of your patient.
[2020-07-11] MEDS: Sodium Chloride 0.9% 1,000 ML IV SCH ×2 (11:23→20:42)
[2020-07-11] MEDS ORDERED: Loratadine 10 MG Tab PO PRN (11:23)
[2020-07-11] MEDS ORDERED: Ibuprofen 200 MG Tab PO PRN (11:23)
[2020-07-11] MEDS ORDERED: Cyclobenzaprine 10 MG Tab PO PRN (11:36)
[2020-07-11] MEDS: Lisinopril 10 MG Tab PO SCH (12:35)
[2020-07-11] MEDS ORDERED: Acetaminophen 325 MG Tab PO PRN (16:39)
[2020-07-11] MEDS ORDERED: Acetaminophen/Diphenhydramine 500-25 MG Tab PO PRN (16:42)
[2020-07-11] MEDS ORDERED: atorvaSTATin 10 MG Tab PO SCH (20:00)
[2020-07-11] MEDS: Hypromellose 0.3% Ophth Soln 15 ML Bottle EYELF SCH (20:46)
[2020-07-12] MEDS: Sodium Chloride 0.9% 1,000 ML IV SCH ×2 (03:17→11:14)
[2020-07-12] MEDS ORDERED: Levothyroxine 75 MCG Tab PO SCH (07:00)
[2020-07-12] MEDS: Lisinopril 10 MG Tab PO SCH (07:50)
[2020-07-12] MEDS: Hypromellose 0.3% Ophth Soln 15 ML Bottle EYELF SCH (07:51)
[2020-07-12] MEDS ORDERED: FLUoxetine 20 MG Cap PO SCH (08:00)
[2020-07-12] MEDS ORDERED: Non-Formulary Medication 1 Each (Fluticasone/Vilanterol 1 EACH) IH SCH (08:00)
[2020-07-12] MEDS ORDERED: Cholecalciferol (Vitamin D3) 25 MCG Tab PO SCH (08:00)
[2020-07-12 08:06] LABS: CHLORIDE,CL 97 mmol/L (98-107); SODIUM,NA 131 mmol/L (136-145)
[2020-07-12 08:08] LABS: ANION GAP 9.4 mmol/L (5-15)
[2020-07-12] MEDS ORDERED: Lisinopril 10 MG Tab PO ONE (09:16)
[2020-07-12] MEDS ORDERED: Loperamide 2 MG Cap PO ONE (09:28)
[2020-07-12] MEDS ORDERED: Atropine/Diphenoxylate 0.025-2.5 MG Tab PO ONE (09:34)
[2020-07-12 10:07] VITALS: BP 147/50; PULSE 54
--- NOTE | 2020-07-12 11:55 | DISCH ---
ADMITTING DIAGNOSES: 1. Hyponatremia. 2. Hypertensive crisis. 3. Tension headache. DISCHARGE DIAGNOSES: 1. Hyponatremia - improved. 2. Hypertensive crisis - improved. 3. Tension headache, resolved. HISTORY OF PRESENT ILLNESS: This 85-year-old female patient presented to the emergency room yesterday for complaints of a headache for the past month. The workup in the emergency room was essentially negative outside of elevated blood pressure. The patient did have a CT scan which did not show any acute pathology. The patient was found to be hyponatremic at 128. Decision was made to admit the patient to Observation for further cares. BRIEF HOSPITAL COURSE: The patient remained hemodynamically stable. The patient remained afebrile. The patient's headache had resolved with lowering of the blood pressure. The patient's hyponatremia was corrected to 131 on date of discharge. The patient did not have any chest pain or palpitations. The patient denied any shortness of breath or cough. The patient did not have any dizziness or lightheadedness. Overall, the patient states she is feeling good. The patient was gently fluid rehydrated with normal saline. The patient was given 0.2 mg of clonidine in the emergency room yesterday. The patient's blood pressures have remained in the 140s. The patient's Ziac blood pressure medication was stopped due to bradycardia and hyponatremia. The patient was started on lisinopril. The patient seemed to tolerate this medication without any side effects. REVIEW OF SYSTEMS: All systems negative. DISCHARGE PHYSICAL EXAMINATION: Vital Signs: Temperature 98.5, pulse 54, blood pressure 147/50, respiratory rate 16, oxygen saturation 97% on room air. Skin: Intact, warm, and dry. Respiratory: Lungs are clear to auscultation. Cardiovascular: Bradycardia with regular rhythm, no murmur. Abdomen: Soft, nontender. Bowel sounds are normoactive x4. Neurological: The patient is alert. Patient is oriented to person, place, and time. No focal neurological deficits. DISCHARGE LABORATORY WORK: BMP: Sodium 131, potassium 4.4, chloride 97, CO2 of 29, anion gap 9.4, BUN 12, creatinine 0.7, GFR greater than 60, glucose 108, calcium 8.5. DISCHARGE MEDICATIONS: 1. Acetaminophen 650 mg 1 tablet p.o. every 6 hours as needed. 2. Tylenol PM extra-strength 2 tablets p.o. at bedtime as needed. 3. Atorvastatin 10 mg 1 tablet p.o. daily at bedtime. 4. Cholecalciferol 50 mcg 1 tablet p.o. daily. 5. Cyclobenzaprine 5 mg 1 tablet p.o. twice daily as needed. 6. Fluoxetine 20 mg 1 tablet p.o. daily. 7. Gentle Tears 1 drop to left eye twice daily. 8. Levothyroxine 75 mcg 1 tablet p.o. daily. 9. Lisinopril 20 mg 1 tablet p.o. daily. 10.Claritin 10 mg 1 tablet p.o. daily as needed. CONSULTATIONS: None. ACTIVITY: As tolerated. DIET: Heart healthy. ASSESSMENT: 1. Hypertensive crisis. 2. Headache secondary to #1 above. 3. Hyponatremia. 4. Bradycardia. PLAN: This 85-year-old female patient is admitted for the above diagnoses. Will be discharged home today. I did speak with the patient's daughter, Tereza, and gave a full update. We will discontinue the Ziac due to bradycardia and hyponatremia and start the patient on lisinopril. The patient tolerated the lisinopril without any problems during this admission. Side effects and safety profile of all medications were thoroughly discussed. Recommend the patient to follow up with her PCP in clinic over the next couple of days for a recheck, would recommend a repeat BMP. Also recommend physical therapy for chronic neck pain. At the time of discharge, the patient did mention she has had diarrhea over the past few days, which was unknown to this provider and the ER provider. This certainly could be a cause of her hyponatremia. The patient was given 1 dose of Lomotil prior to discharge. The patient was discharged in hemodynamically stable condition. TB: 07/12/2020 11:06:59 MODL: 07/12/2020 11:49:01 /[id number] JAVIER
== END 2020-07-12 14:15 | disposition home or self-care (01) ==
LOC: VM.ED 09:35 → VM.MS 11:11
PROVIDERS: ADMIT Physician Assistant; ATTEND Physician Assistant
DX: G44.209 Tension-type headache, unspecified, not intractable (principal); I16.9 Hypertensive crisis, unspecified; E87.1 Hypo-osmolality and hyponatremia; E78.00 Pure hypercholesterolemia, unspecified; I10 Essential (primary) hypertension; J45.909 Unspecified asthma, uncomplicated; E03.9 Hypothyroidism, unspecified; R00.1 Bradycardia, unspecified; Z20.822 Contact with and (suspected) exposure to COVID-19; Z88.1 Allergy status to other antibiotic agents; Z88.2 Allergy status to sulfonamides; Z88.8 Allergy status to other drugs, medicaments and biological substances; Z91.041 Radiographic dye allergy status; Z79.899 Other long term (current) drug therapy; Z79.890 Hormone replacement therapy; Z90.49 Acquired absence of other specified parts of digestive tract
CPT/HCPCS: 36415; 70450; 80048; 80053; 84443; 84484; 85025; 85610; 93005; 93010; 99217; 99220; 99285-25; A9270-GY; G0378; J7030; U0002

== ENCOUNTER 2022-02-07 16:56 | Emergency (ER) | payer MEDICARE, OTHER | END 2022-02-07 18:00 | disposition left against medical advice (07) | LOC: VM.ED 16:56 | DX: Z53.21 Procedure and treatment not carried out due to patient leaving prior to being seen by health care provider (principal) ==

== ENCOUNTER 2022-11-10 11:03 | Emergency (ER) | payer MEDICARE, OTHER ==
[2022-11-10] MEDS ORDERED: Acetaminophen/HYDROcodone 325-5 MG Tab PO ONE (11:15)
[2022-11-10 13:09] VITALS: BP 142/80; PULSE 84
== END 2022-11-10 13:10 | disposition home or self-care (01) ==
LOC: VM.ED 11:03
DX: M54.41 Lumbago with sciatica, right side (principal); E78.00 Pure hypercholesterolemia, unspecified; I10 Essential (primary) hypertension; J45.909 Unspecified asthma, uncomplicated; E11.9 Type 2 diabetes mellitus without complications; E03.9 Hypothyroidism, unspecified; E66.9 Obesity, unspecified; Z88.2 Allergy status to sulfonamides; Z88.0 Allergy status to penicillin; Z88.1 Allergy status to other antibiotic agents; Z88.8 Allergy status to other drugs, medicaments and biological substances; Z91.041 Radiographic dye allergy status; Z79.899 Other long term (current) drug therapy
CPT/HCPCS: 72131; 99283; 99284; A9270-GY

== ENCOUNTER 2022-11-15 10:46 | Inpatient (IN) | payer MEDICARE, OTHER ==
[2022-11-15] MEDS ORDERED: Morphine 2 MG/ML SYRINGE IVPUSH PRN (11:14)
[2022-11-15] MEDS ORDERED: tiZANidine 4 MG Tab PO PRN (11:22)
[2022-11-15 12:04] LABS: HEMATOCRIT 38.7 % (33.0-47.0); MEAN CORPUSCULAR HEMOGLOBIN 31.2 pg (26.0-32.0); MEAN CORPUSCULAR HGB CONC 33.6 g/dL (32.0-36.0); MEAN CORPUSCULAR VOLUME 92.8 fL (78.0-93.0); RED BLOOD CELL COUNT 4.17 x10^6/uL (4.00-5.50); WHITE BLOOD CELL COUNT,WBC 4.4 x10^3/uL (4.0-10.0)
[2022-11-15 12:32] LABS: A/G RATIO 1.03; ALBUMIN 3.5 g/dL (3.4-5.0); BILIRUBIN TOTAL 1.9 mg/dL (0.2-1.0); CALCIUM 9.3 mg/dL (8.5-10.1); CREATININE 0.7 mg/dL (0.55-1.02); EST CRCL DRUG DOSING (CG) 50.74 mL/min; POTASSIUM,K 4.5 mmol/L (3.5-5.1); PROTEIN TOTAL,TP 6.9 g/dL (6.4-8.2); TSH ULTRASENSITIVE 1.33 uIU/mL (0.358-3.74)
[2022-11-15 12:34] LABS: ANION GAP 10.5 mmol/L (5-15)
[2022-11-15] MEDS: Sodium Chloride 0.9% 1,000 ML IV SCH ×2 (12:46→20:51)
[2022-11-15] MEDS: traMADol 50 MG Tab PO PRN (12:58)
[2022-11-15] MEDS ORDERED: Acetaminophen 325 MG Tab PO PRN (13:03)
[2022-11-15] MEDS ORDERED: Albuterol HFA 18 Gm Inhaler INH PRN (13:03)
[2022-11-15] MEDS ORDERED: Albuterol/Ipratropium 3.0-0.5 MG/3 ML Neb Soln NEB PRN (13:03)
[2022-11-15] MEDS ORDERED: Loratadine 10 MG Tab PO PRN (13:03)
[2022-11-15 14:32] LABS: APPEARANCE,URINE CLOUDY (CLEAR); BILIRUBIN,URINE NEGATIVE (NEGATIVE); COLOR,URINE LIGHT YELLOW (YELLOW); GLUCOSE,URINE NEGATIVE (NEGATIVE); KETONES,URINE NEGATIVE (NEGATIVE); LEUKOCYTE ESTERASE,URINE MODERATE (NEGATIVE); NITRITE,URINE POSITIVE (NEGATIVE); OCCULT BLOOD,URINE TRACE-LYSED (NEGATIVE); PH,URINE 7.5 (5.0-8.0); PROTEIN,URINE NEGATIVE (NEGATIVE); UROBILINOGEN,URINE 0.2 EU/dL (0.2)
[2022-11-15 14:38] LABS: BACTERIA,URINE MANY /HPF (NOT SEEN); HYALINE CASTS,URINE RARE; MUCUS,URINE NOT SEEN /LPF (NOT SEEN); RBC,URINE NOT SEEN /HPF (NOT SEEN); SQUAMOUS EPITHELIAL CELLS,UR RARE /HPF (NOT SEEN); WBC,URINE 20-30 /HPF (NOT SEEN)
[2022-11-15] MEDS: Nitrofurantoin Monohydrate/Macrocrystalline 100 MG Cap PO SCH ×2 (15:30→20:07)
[2022-11-15] MEDS: Gabapentin 100 MG Cap PO SCH (20:07)
[2022-11-15] MEDS: atorvaSTATin 10 MG Tab PO SCH (20:07)
[2022-11-15] MEDS: Hypromellose 0.3% Ophth Soln 15 ML Bottle EYELF SCH (20:08)
[2022-11-16] MEDS: Levothyroxine 75 MCG Tab PO SCH (06:17)
[2022-11-16] MEDS: traMADol 50 MG Tab PO PRN ×2 (06:17→20:25)
[2022-11-16 06:38] LABS: BASOPHILS PERCENT AUTO 0.6 % (0.2-1.2); EOSINOPHILS ABSOLUTE AUTO 0.3 x10^3/uL (0.0-0.5); EOSINOPHILS PERCENT AUTO 5.4 % (0.0-4.0); HEMATOCRIT 38.8 % (33.0-47.0); HEMOGLOBIN 12.8 g/dL (12.0-16.0); IMMATURE GRAN ABSOLUTE AUTO 0.01 x10^3/uL (0.00-0.07); LYMPHOCYTES ABSOLUTE AUTO 0.9 x10^3/uL (1.0-4.8); MEAN CORPUSCULAR HEMOGLOBIN 31.1 pg (26.0-32.0); MEAN CORPUSCULAR VOLUME 94.4 fL (78.0-93.0); MONOCYTES ABSOLUTE AUTO 0.4 x10^3/uL (0.0-0.8); MONOCYTES PERCENT AUTO 8.1 % (2.0-11.0); NEUTROPHILS ABSOLUTE AUTO 3.2 x10^3/uL (1.8-7.7); NEUTROPHILS PERCENT AUTO 66.7 % (50.0-80.0); PLATELET COUNT,PLT 201 x10^3/uL (130-400); RED BLOOD CELL COUNT 4.11 x10^6/uL (4.00-5.50); WHITE BLOOD CELL COUNT,WBC 4.8 x10^3/uL (4.0-10.0)
[2022-11-16 06:47] LABS: CALCIUM 8.6 mg/dL (8.5-10.1); CREATININE 0.7 mg/dL (0.55-1.02); EST CRCL DRUG DOSING (CG) 50.74 mL/min; POTASSIUM,K 4.1 mmol/L (3.5-5.1)
[2022-11-16 06:48] LABS: ANION GAP 11.1 mmol/L (5-15)
[2022-11-16] MEDS ORDERED: ALPRAZolam 0.25 MG Tab PO PRN (08:19)
[2022-11-16] MEDS ORDERED: Sodium Chloride 0.9% 1,000 ML IV SCH (08:30)
[2022-11-16] MEDS: FLUoxetine 20 MG Cap PO SCH (09:12)
[2022-11-16] MEDS: Rivaroxaban 10 MG Tab PO SCH (09:12)
[2022-11-16] MEDS: Nitrofurantoin Monohydrate/Macrocrystalline 100 MG Cap PO SCH ×2 (09:13→20:20)
[2022-11-16] MEDS: Gabapentin 100 MG Cap PO SCH ×2 (09:13→20:20)
[2022-11-16] MEDS: Cholecalciferol (Vitamin D3) 25 MCG Tab PO SCH (09:13)
[2022-11-16] MEDS: Losartan 50 MG Tab PO SCH (09:13)
[2022-11-16] MEDS: Hypromellose 0.3% Ophth Soln 15 ML Bottle EYELF SCH ×2 (09:21→20:21)
[2022-11-16] MEDS ORDERED: Sodium Chloride 0.9% 10 ML Syringe FLUSH PRN (19:34)
[2022-11-16] MEDS: atorvaSTATin 10 MG Tab PO SCH (20:20)
[2022-11-16] MEDS ORDERED: traZODone 50 MG Tab PO SCH (21:00)
[2022-11-17] MEDS: Levothyroxine 75 MCG Tab PO SCH (06:24)
[2022-11-17] MEDS: Nitrofurantoin Monohydrate/Macrocrystalline 100 MG Cap PO SCH (08:44)
[2022-11-17] MEDS: Gabapentin 100 MG Cap PO SCH (08:45)
[2022-11-17] MEDS: Rivaroxaban 10 MG Tab PO SCH (08:45)
[2022-11-17] MEDS: Cholecalciferol (Vitamin D3) 25 MCG Tab PO SCH (08:45)
[2022-11-17] MEDS: Hypromellose 0.3% Ophth Soln 15 ML Bottle EYELF SCH (08:46)
[2022-11-17] MEDS: Losartan 50 MG Tab PO SCH (08:46)
[2022-11-17] MEDS: FLUoxetine 20 MG Cap PO SCH (08:46)
[2022-11-17 08:47] VITALS: BP 128/84
[2022-11-17 08:50] VITALS: PULSE 86
== END 2022-11-17 13:20 | disposition home health service (06) | DRG 689 ==
LOC: VM.MS 10:49 → OBSVTOIN 11-16 19:27
PROVIDERS: ADMIT Family Medicine; ATTEND Family Medicine
DX: R53.1 Weakness (principal); R41.0 Disorientation, unspecified; N39.0 Urinary tract infection, site not specified; G92.8 Other toxic encephalopathy; I48.20 Chronic atrial fibrillation, unspecified; E86.0 Dehydration; G89.29 Other chronic pain; R29.6 Repeated falls; M54.50 Low back pain, unspecified; M25.561 Pain in right knee; G47.00 Insomnia, unspecified; F41.9 Anxiety disorder, unspecified; E11.9 Type 2 diabetes mellitus without complications; E78.00 Pure hypercholesterolemia, unspecified; J45.30 Mild persistent asthma, uncomplicated; K21.9 Gastro-esophageal reflux disease without esophagitis; I10 Essential (primary) hypertension; E03.9 Hypothyroidism, unspecified; M48.061 Spinal stenosis, lumbar region without neurogenic claudication; B96.1 Klebsiella pneumoniae [K. pneumoniae] as the cause of diseases classified elsewhere; Z88.8 Allergy status to other drugs, medicaments and biological substances; Z88.1 Allergy status to other antibiotic agents; Z88.0 Allergy status to penicillin; Z91.041 Radiographic dye allergy status; Z90.49 Acquired absence of other specified parts of digestive tract; Z98.890 Other specified postprocedural states; Z98.41 Cataract extraction status, right eye; Z98.42 Cataract extraction status, left eye; Z79.01 Long term (current) use of anticoagulants; Z79.899 Other long term (current) drug therapy; Z83.3 Family history of diabetes mellitus
CPT/HCPCS: 36415 ×2; 73560; 80048; 80053; 81001; 84443; 85025; 85027; 87086; 87088; 87186; 96361 ×2; 96374; 97110; 97162; A9270 ×14; G0378 ×3; G0379; J2270; J7030 ×3; 97165-GO

== ENCOUNTER 2023-02-27 15:25 | Emergency (ER) | payer MEDICARE, OTHER ==
[2023-02-27 15:56] LABS: BASOPHILS PERCENT AUTO 0.6 % (0.2-1.2); EOSINOPHILS ABSOLUTE AUTO 0.3 x10^3/uL (0.0-0.5); EOSINOPHILS PERCENT AUTO 4.4 % (0.0-4.0); HEMATOCRIT 40.2 % (33.0-47.0); HEMOGLOBIN 13.6 g/dL (12.0-16.0); IMMATURE GRAN ABSOLUTE AUTO 0.01 x10^3/uL (0.00-0.07); LYMPHOCYTES ABSOLUTE AUTO 1.6 x10^3/uL (1.0-4.8); LYMPHOCYTES PERCENT AUTO 22.8 % (25.0-50.0); MEAN CORPUSCULAR HEMOGLOBIN 31.8 pg (26.0-32.0); MEAN CORPUSCULAR HGB CONC 33.8 g/dL (32.0-36.0); MEAN CORPUSCULAR VOLUME 93.9 fL (78.0-93.0); MONOCYTES ABSOLUTE AUTO 0.6 x10^3/uL (0.0-0.8); MONOCYTES PERCENT AUTO 8.3 % (2.0-11.0); NEUTROPHILS ABSOLUTE AUTO 4.4 x10^3/uL (1.8-7.7); NEUTROPHILS PERCENT AUTO 63.8 % (50.0-80.0); PLATELET COUNT,PLT 224 x10^3/uL (130-400); RED BLOOD CELL COUNT 4.28 x10^6/uL (4.00-5.50); WHITE BLOOD CELL COUNT,WBC 6.9 x10^3/uL (4.0-10.0)
[2023-02-27 16:15] LABS: A/G RATIO 1.12; ALANINE AMINOTRANSFERASE,ALT 15 U/L (14-59); ALBUMIN 3.8 g/dL (3.4-5.0); ALKALINE PHOSPHATASE 65 U/L (46-116); ANION GAP 13.8 mmol/L (5-15); ASPARTATE AMNIOTRANSFERASE,AST 21 U/L (15-37); BILIRUBIN TOTAL 1.2 mg/dL (0.2-1.0); BLOOD UREA NITROGEN,BUN 14 mg/dL (7-18); CARBON DIOXIDE,CO2 28 mmol/L (21-32); CHLORIDE,CL 93 mmol/L (98-107); CREATININE 0.7 mg/dL (0.55-1.02); ESTIMATED GFR 84 mL/min (>=60); GLUCOSE RANDOM 129 mg/dL (70-99); POTASSIUM,K 4.8 mmol/L (3.5-5.1); PROTEIN TOTAL,TP 7.2 g/dL (6.4-8.2); SODIUM,NA 130 mmol/L (136-145)
[2023-02-27 16:45] LABS: APPEARANCE,URINE CLOUDY (CLEAR); BILIRUBIN,URINE NEGATIVE (NEGATIVE); COLOR,URINE YELLOW (YELLOW); GLUCOSE,URINE NEGATIVE (NEGATIVE); KETONES,URINE NEGATIVE (NEGATIVE); LEUKOCYTE ESTERASE,URINE SMALL (NEGATIVE); NITRITE,URINE POSITIVE (NEGATIVE); OCCULT BLOOD,URINE TRACE-INTACT (NEGATIVE); PROTEIN,URINE NEGATIVE (NEGATIVE); UROBILINOGEN,URINE 0.2 EU/dL (0.2)
[2023-02-27 16:55] LABS: BACTERIA,URINE MANY /HPF (NOT SEEN); SQUAMOUS EPITHELIAL CELLS,UR OCCASIONAL /HPF (NOT SEEN); WBC,URINE 20-30 /HPF (NOT SEEN)
[2023-02-27] MEDS: cefTRIAXone 1 GM, Lidocaine 1% 2.1 ML IM ONE ×2 (17:09)
== END 2023-02-27 17:16 | disposition home or self-care (01) ==
LOC: VM.ED 15:25
DX: N39.0 Urinary tract infection, site not specified (principal); E78.00 Pure hypercholesterolemia, unspecified; I10 Essential (primary) hypertension; J45.909 Unspecified asthma, uncomplicated; K21.9 Gastro-esophageal reflux disease without esophagitis; E11.9 Type 2 diabetes mellitus without complications; Z88.0 Allergy status to penicillin; Z88.8 Allergy status to other drugs, medicaments and biological substances; Z88.1 Allergy status to other antibiotic agents; Z79.899 Other long term (current) drug therapy
CPT/HCPCS: 36415; 80053; 81001; 85025; 87086; 87088; 87186; 96372; 99283; 99284; J0696; J3490

== ENCOUNTER 2023-03-07 19:28 | Emergency (ER) | payer MEDICARE, OTHER ==
[2023-03-07 20:49] LABS: APPEARANCE,URINE CLEAR (CLEAR); BILIRUBIN,URINE NEGATIVE (NEGATIVE); COLOR,URINE YELLOW (YELLOW); GLUCOSE,URINE NEGATIVE (NEGATIVE); KETONES,URINE NEGATIVE (NEGATIVE); LEUKOCYTE ESTERASE,URINE NEGATIVE (NEGATIVE); NITRITE,URINE NEGATIVE (NEGATIVE); OCCULT BLOOD,URINE NEGATIVE (NEGATIVE); PH,URINE 6.5 (5.0-8.0); PROTEIN,URINE NEGATIVE (NEGATIVE); UROBILINOGEN,URINE 0.2 EU/dL (0.2)
[2023-03-07 21:23] VITALS: BP 160/88; PULSE 78
== END 2023-03-07 21:10 | disposition home or self-care (01) ==
LOC: VM.ED 19:28
DX: R32 Unspecified urinary incontinence (principal); M51.36 Other intervertebral disc degeneration, lumbar region; M48.061 Spinal stenosis, lumbar region without neurogenic claudication; M54.50 Low back pain, unspecified; G89.29 Other chronic pain; E66.9 Obesity, unspecified; E03.9 Hypothyroidism, unspecified; E11.9 Type 2 diabetes mellitus without complications; I10 Essential (primary) hypertension; E78.00 Pure hypercholesterolemia, unspecified; Z79.02 Long term (current) use of antithrombotics/antiplatelets; Z79.899 Other long term (current) drug therapy; Z88.0 Allergy status to penicillin; Z91.048 Other nonmedicinal substance allergy status; Z88.8 Allergy status to other drugs, medicaments and biological substances; Z88.2 Allergy status to sulfonamides
CPT/HCPCS: 81003; 99283

== ENCOUNTER 2023-03-09 18:02 | Inpatient (IN) | payer MEDICARE, OTHER ==
[2023-03-09 20:24] LABS: BASOPHILS PERCENT AUTO 0.3 % (0.2-1.2); EOSINOPHILS PERCENT AUTO 0.5 % (0.0-4.0); HEMATOCRIT 37.1 % (33.0-47.0); HEMOGLOBIN 13.3 g/dL (12.0-16.0); IMMATURE GRAN ABSOLUTE AUTO 0.01 x10^3/uL (0.00-0.07); LYMPHOCYTES ABSOLUTE AUTO 0.7 x10^3/uL (1.0-4.8); LYMPHOCYTES PERCENT AUTO 12.5 % (25.0-50.0); MEAN CORPUSCULAR HEMOGLOBIN 32.6 pg (26.0-32.0); MEAN CORPUSCULAR HGB CONC 35.8 g/dL (32.0-36.0); MEAN CORPUSCULAR VOLUME 90.9 fL (78.0-93.0); MONOCYTES ABSOLUTE AUTO 0.5 x10^3/uL (0.0-0.8); MONOCYTES PERCENT AUTO 8.9 % (2.0-11.0); NEUTROPHILS ABSOLUTE AUTO 4.5 x10^3/uL (1.8-7.7); NEUTROPHILS PERCENT AUTO 77.6 % (50.0-80.0); PLATELET COUNT,PLT 234 x10^3/uL (130-400); RED BLOOD CELL COUNT 4.08 x10^6/uL (4.00-5.50); WHITE BLOOD CELL COUNT,WBC 5.7 x10^3/uL (4.0-10.0)
[2023-03-09 20:40] LABS: A/G RATIO 1.28; ALANINE AMINOTRANSFERASE,ALT 23 U/L (14-59); ALBUMIN 3.7 g/dL (3.4-5.0); ALKALINE PHOSPHATASE 60 U/L (46-116); ASPARTATE AMNIOTRANSFERASE,AST 34 U/L (15-37); BILIRUBIN TOTAL 1.5 mg/dL (0.2-1.0); BLOOD UREA NITROGEN,BUN 13 mg/dL (7-18); C-REACTIVE PROTEIN 0.07 mg/dL (<=0.30); CALCIUM 8.6 mg/dL (8.5-10.1); CARBON DIOXIDE,CO2 29 mmol/L (21-32); CHLORIDE,CL 88 mmol/L (98-107); CREATININE 0.7 mg/dL (0.55-1.02); GLUCOSE RANDOM 150 mg/dL (70-99); POTASSIUM,K 4.4 mmol/L (3.5-5.1); PROTEIN TOTAL,TP 6.6 g/dL (6.4-8.2)
[2023-03-09 20:41] LABS: ANION GAP 9.4 mmol/L (5-15); ESTIMATED GFR 84 mL/min (>=60)
[2023-03-09 20:42] LABS: SODIUM,NA 122 mmol/L (136-145)
[2023-03-09] MEDS ORDERED: NS + KCl 20mEq/L 1,000 ML IV SCH (21:00)
[2023-03-09] MEDS ORDERED: Ondansetron 4 MG Tab.DIS PO PRN (21:42)
[2023-03-09] MEDS: Acetaminophen 325 MG Tab PO PRN (23:07)
[2023-03-10] MEDS: Ibuprofen 200 MG Tab PO PRN (00:55)
[2023-03-10] MEDS: HYDROmorphone 0.5 MG/0.5 ML Syringe IVPUSH PRN (02:11)
[2023-03-10] MEDS: Acetaminophen 325 MG Tab PO PRN ×2 (06:20→10:10)
[2023-03-10 06:57] LABS: BASOPHILS PERCENT AUTO 0.6 % (0.2-1.2); EOSINOPHILS ABSOLUTE AUTO 0.1 x10^3/uL (0.0-0.5); EOSINOPHILS PERCENT AUTO 0.9 % (0.0-4.0); HEMATOCRIT 33.5 % (33.0-47.0); HEMOGLOBIN 11.7 g/dL (12.0-16.0); IMMATURE GRAN ABSOLUTE AUTO 0.01 x10^3/uL (0.00-0.07); LYMPHOCYTES ABSOLUTE AUTO 1.3 x10^3/uL (1.0-4.8); LYMPHOCYTES PERCENT AUTO 19.1 % (25.0-50.0); MEAN CORPUSCULAR HEMOGLOBIN 32.2 pg (26.0-32.0); MEAN CORPUSCULAR HGB CONC 34.9 g/dL (32.0-36.0); MEAN CORPUSCULAR VOLUME 92.3 fL (78.0-93.0); MONOCYTES ABSOLUTE AUTO 0.7 x10^3/uL (0.0-0.8); MONOCYTES PERCENT AUTO 10.3 % (2.0-11.0); NEUTROPHILS ABSOLUTE AUTO 4.8 x10^3/uL (1.8-7.7); PLATELET COUNT,PLT 205 x10^3/uL (130-400); RED BLOOD CELL COUNT 3.63 x10^6/uL (4.00-5.50)
[2023-03-10 07:09] LABS: CALCIUM 8.2 mg/dL (8.5-10.1); CREATININE 0.7 mg/dL (0.55-1.02); EST CRCL DRUG DOSING (CG) 49.82 mL/min; POTASSIUM,K 4.6 mmol/L (3.5-5.1)
[2023-03-10 07:10] LABS: ANION GAP 10.6 mmol/L (5-15)
[2023-03-10] MEDS ORDERED: Albuterol HFA 18 Gm Inhaler INH PRN (07:54)
[2023-03-10] MEDS ORDERED: tiZANidine 4 MG Tab PO PRN (07:54)
[2023-03-10] MEDS ORDERED: Albuterol/Ipratropium 3.0-0.5 MG/3 ML Neb Soln NEB PRN ×2 (07:54→08:45)
[2023-03-10] MEDS ORDERED: Loratadine 10 MG Tab PO PRN (07:54)
[2023-03-10] MEDS: Budesonide 0.5 MG/2 ML Neb Susp INH SCH ×2 (08:19→21:08)
[2023-03-10] MEDS: Cholecalciferol (Vitamin D3) 25 MCG Tab PO SCH (09:08)
[2023-03-10] MEDS: FLUoxetine 20 MG Cap PO SCH (09:08)
[2023-03-10] MEDS: Rivaroxaban 10 MG Tab PO SCH (09:08)
[2023-03-10] MEDS: Gabapentin 100 MG Cap PO SCH ×2 (09:08→21:03)
[2023-03-10] MEDS: Sodium Chloride 0.9% 1,000 ML IV SCH ×2 (09:11→17:45)
[2023-03-10] MEDS: Losartan 50 MG Tab PO SCH (09:11)
[2023-03-10 13:43] LABS: CALCIUM 8.2 mg/dL (8.5-10.1); CREATININE 0.9 mg/dL (0.55-1.02); EST CRCL DRUG DOSING (CG) 38.75 mL/min; POTASSIUM,K 4.6 mmol/L (3.5-5.1)
[2023-03-10 13:49] LABS: ANION GAP 12.6 mmol/L (5-15)
[2023-03-10] MEDS: traZODone 50 MG Tab PO SCH (21:04)
[2023-03-10] MEDS: atorvaSTATin 10 MG Tab PO SCH (21:04)
[2023-03-10] MEDS: traMADol 50 MG Tab PO PRN (21:17)
[2023-03-11] MEDS: HYDROmorphone 0.5 MG/0.5 ML Syringe IVPUSH PRN (01:39)
[2023-03-11] MEDS: Sodium Chloride 0.9% 1,000 ML IV SCH ×2 (01:50→09:45)
[2023-03-11] MEDS: Levothyroxine 75 MCG Tab PO SCH (06:25)
[2023-03-11] MEDS: Budesonide 0.5 MG/2 ML Neb Susp INH SCH ×2 (06:25→21:01)
[2023-03-11] MEDS: traMADol 50 MG Tab PO PRN ×2 (06:31→20:55)
[2023-03-11] MEDS: FLUoxetine 20 MG Cap PO SCH (09:11)
[2023-03-11] MEDS: Rivaroxaban 10 MG Tab PO SCH (09:11)
[2023-03-11] MEDS: Cholecalciferol (Vitamin D3) 25 MCG Tab PO SCH (09:11)
[2023-03-11] MEDS: Losartan 50 MG Tab PO SCH (09:12)
[2023-03-11] MEDS: Gabapentin 100 MG Cap PO SCH ×2 (09:12→20:58)
[2023-03-11] MEDS: Acetaminophen 325 MG Tab PO PRN (09:45)
[2023-03-11 11:08] LABS: BASOPHILS PERCENT AUTO 0.6 % (0.2-1.2); EOSINOPHILS ABSOLUTE AUTO 0.1 x10^3/uL (0.0-0.5); EOSINOPHILS PERCENT AUTO 0.7 % (0.0-4.0); HEMATOCRIT 34.3 % (33.0-47.0); HEMOGLOBIN 11.7 g/dL (12.0-16.0); IMMATURE GRAN ABSOLUTE AUTO 0.01 x10^3/uL (0.00-0.07); LYMPHOCYTES ABSOLUTE AUTO 0.9 x10^3/uL (1.0-4.8); MEAN CORPUSCULAR HEMOGLOBIN 31.8 pg (26.0-32.0); MEAN CORPUSCULAR HGB CONC 34.1 g/dL (32.0-36.0); MEAN CORPUSCULAR VOLUME 93.2 fL (78.0-93.0); MONOCYTES ABSOLUTE AUTO 0.6 x10^3/uL (0.0-0.8); MONOCYTES PERCENT AUTO 9.1 % (2.0-11.0); NEUTROPHILS ABSOLUTE AUTO 5.2 x10^3/uL (1.8-7.7); NEUTROPHILS PERCENT AUTO 76.5 % (50.0-80.0); PLATELET COUNT,PLT 195 x10^3/uL (130-400); RED BLOOD CELL COUNT 3.68 x10^6/uL (4.00-5.50); WHITE BLOOD CELL COUNT,WBC 6.8 x10^3/uL (4.0-10.0)
[2023-03-11 11:22] LABS: CALCIUM 8.3 mg/dL (8.5-10.1); CREATININE 0.7 mg/dL (0.55-1.02); EST CRCL DRUG DOSING (CG) 49.82 mL/min; POTASSIUM,K 4.5 mmol/L (3.5-5.1)
[2023-03-11 11:23] LABS: ANION GAP 7.5 mmol/L (5-15)
[2023-03-11] MEDS: Sodium Chloride 1 GM Tab PO SCH (14:04)
[2023-03-11] MEDS: traZODone 50 MG Tab PO SCH (20:56)
[2023-03-11] MEDS: atorvaSTATin 10 MG Tab PO SCH (20:59)
[2023-03-12] MEDS: Levothyroxine 75 MCG Tab PO SCH (06:19)
[2023-03-12] MEDS: Acetaminophen 325 MG Tab PO PRN ×2 (06:19→18:56)
[2023-03-12] MEDS: Budesonide 0.5 MG/2 ML Neb Susp INH SCH ×2 (06:21→20:43)
[2023-03-12 08:02] LABS: HEMATOCRIT 34.3 % (33.0-47.0); HEMOGLOBIN 11.7 g/dL (12.0-16.0); MEAN CORPUSCULAR HEMOGLOBIN 31.6 pg (26.0-32.0); MEAN CORPUSCULAR HGB CONC 34.1 g/dL (32.0-36.0); MEAN CORPUSCULAR VOLUME 92.7 fL (78.0-93.0); RED BLOOD CELL COUNT 3.7 x10^6/uL (4.00-5.50); WHITE BLOOD CELL COUNT,WBC 6.8 x10^3/uL (4.0-10.0)
[2023-03-12 08:18] LABS: CALCIUM 8.6 mg/dL (8.5-10.1); CREATININE 0.7 mg/dL (0.55-1.02); EST CRCL DRUG DOSING (CG) 49.82 mL/min
[2023-03-12] MEDS: Rivaroxaban 10 MG Tab PO SCH (09:44)
[2023-03-12] MEDS: Losartan 50 MG Tab PO SCH (09:45)
[2023-03-12] MEDS: Cholecalciferol (Vitamin D3) 25 MCG Tab PO SCH (09:45)
[2023-03-12] MEDS: Sodium Chloride 1 GM Tab PO SCH ×2 (09:45→17:56)
[2023-03-12] MEDS: Gabapentin 100 MG Cap PO SCH ×2 (09:45→20:41)
[2023-03-12] MEDS: FLUoxetine 20 MG Cap PO SCH (09:45)
[2023-03-12] MEDS: Sodium Chloride 0.9% 10 ML Syringe FLUSH PRN ×2 (09:47→20:44)
[2023-03-12] MEDS ORDERED: Magnesium Hydroxide 400 MG/5 ML Susp 30 ML Cup PO PRN (12:02)
[2023-03-12] MEDS ORDERED: Polyethylene Glycol 3350 Powder 17 GM Packet PO PRN (12:03)
[2023-03-12] MEDS ORDERED: Docusate Sodium 100 MG Cap PO SCH (12:15)
[2023-03-12] MEDS: atorvaSTATin 10 MG Tab PO SCH (20:41)
[2023-03-12] MEDS: traZODone 50 MG Tab PO SCH (20:42)
[2023-03-13] MEDS: traMADol 50 MG Tab PO PRN (05:43)
[2023-03-13] MEDS: Budesonide 0.5 MG/2 ML Neb Susp INH SCH (06:00)
[2023-03-13] MEDS: Levothyroxine 75 MCG Tab PO SCH (06:00)
[2023-03-13] MEDS: Ibuprofen 200 MG Tab PO PRN (06:49)
[2023-03-13 07:09] LABS: CALCIUM 8.7 mg/dL (8.5-10.1); CREATININE 0.6 mg/dL (0.55-1.02); EST CRCL DRUG DOSING (CG) 58.12 mL/min; POTASSIUM,K 4.3 mmol/L (3.5-5.1)
[2023-03-13 07:12] LABS: ANION GAP 7.3 mmol/L (5-15)
[2023-03-13] MEDS: Rivaroxaban 10 MG Tab PO SCH (08:03)
[2023-03-13] MEDS: FLUoxetine 20 MG Cap PO SCH (08:04)
[2023-03-13] MEDS: Gabapentin 100 MG Cap PO SCH (08:04)
[2023-03-13] MEDS: Sodium Chloride 1 GM Tab PO SCH (08:05)
[2023-03-13] MEDS: Cholecalciferol (Vitamin D3) 25 MCG Tab PO SCH (08:05)
[2023-03-13] MEDS: Losartan 50 MG Tab PO SCH (08:06)
[2023-03-13] MEDS ORDERED: Polyethylene Glycol 3350 Powder 17 GM Packet PO SCH (09:00)
[2023-03-13 10:31] VITALS: BP 131/76; PULSE 87
== END 2023-03-13 11:00 | disposition swing bed (61) | DRG 563 ==
LOC: VM.ED 18:02 → VM.MS 21:07
PROVIDERS: ADMIT Physician Assistant; ATTEND Family Medicine
DX: S52.572A Other intraarticular fracture of lower end of left radius, initial encounter for closed fracture (principal); S52.502A Unspecified fracture of the lower end of left radius, initial encounter for closed fracture; I48.11 Longstanding persistent atrial fibrillation; E87.1 Hypo-osmolality and hyponatremia; S62.327A Displaced fracture of shaft of fifth metacarpal bone, left hand, initial encounter for closed fracture; E11.9 Type 2 diabetes mellitus without complications; I10 Essential (primary) hypertension; M19.90 Unspecified osteoarthritis, unspecified site; M54.2 Cervicalgia; G89.29 Other chronic pain; F32.A Depression, unspecified; E78.00 Pure hypercholesterolemia, unspecified; E03.9 Hypothyroidism, unspecified; K21.9 Gastro-esophageal reflux disease without esophagitis; Z96.649 Presence of unspecified artificial hip joint; M48.07 Spinal stenosis, lumbosacral region; E55.9 Vitamin D deficiency, unspecified; G47.00 Insomnia, unspecified; J45.20 Mild intermittent asthma, uncomplicated; R32 Unspecified urinary incontinence; F41.9 Anxiety disorder, unspecified; S00.83XA Contusion of other part of head, initial encounter; M54.50 Low back pain, unspecified; G31.9 Degenerative disease of nervous system, unspecified; Z88.1 Allergy status to other antibiotic agents; Z88.2 Allergy status to sulfonamides; Z88.8 Allergy status to other drugs, medicaments and biological substances; Z91.041 Radiographic dye allergy status; E66.9 Obesity, unspecified; Z79.01 Long term (current) use of anticoagulants; Z79.2 Long term (current) use of antibiotics; Z87.19 Personal history of other diseases of the digestive system; Z68.27 Body mass index [BMI] 27.0-27.9, adult; Z90.89 Acquired absence of other organs; Z98.49 Cataract extraction status, unspecified eye; Z79.899 Other long term (current) drug therapy; Z86.010 Personal history of colon polyps; Z98.890 Other specified postprocedural states; Z90.49 Acquired absence of other specified parts of digestive tract; Z87.440 Personal history of urinary (tract) infections; W10.8XXA Fall (on) (from) other stairs and steps, initial encounter; Z86.718 Personal history of other venous thrombosis and embolism; W10.9XXA Fall (on) (from) unspecified stairs and steps, initial encounter
CPT/HCPCS: 36415; 70450; 71045; 72170; 73110-LT; 73130-LT; 80048; 80053; 85025; 85027; 86140; 94640; 97162-GP; 99285; A9270-GY; J1170; J3480; J3490; J7030; J7620-GY

== ENCOUNTER 2023-03-13 09:03 | Inpatient (IN) | payer MEDICARE, OTHER ==
[2023-03-13] MEDS ORDERED: Sodium Chloride 0.9% 10 ML Syringe FLUSH PRN (11:39)
[2023-03-13] MEDS ORDERED: Loratadine 10 MG Tab PO PRN ×2 (11:39→12:09)
[2023-03-13] MEDS ORDERED: Albuterol HFA 18 Gm Inhaler INH PRN ×2 (11:39→12:09)
[2023-03-13] MEDS ORDERED: Ondansetron 4 MG Tab.DIS PO PRN ×2 (11:39→12:09)
[2023-03-13] MEDS ORDERED: Albuterol/Ipratropium 3.0-0.5 MG/3 ML Neb Soln NEB PRN ×2 (11:39→12:09)
[2023-03-13] MEDS ORDERED: Magnesium Hydroxide 400 MG/5 ML Susp 30 ML Cup PO PRN (11:39)
[2023-03-13] MEDS ORDERED: tiZANidine 4 MG Tab PO PRN ×2 (11:39→12:09)
[2023-03-13] MEDS ORDERED: traMADol 50 MG Tab PO PRN (12:09)
[2023-03-13] MEDS ORDERED: Acetaminophen 325 MG Tab PO PRN (12:09)
[2023-03-13] MEDS: Gabapentin 100 MG Cap PO SCH (20:08)
[2023-03-13] MEDS: traZODone 50 MG Tab PO SCH (20:09)
[2023-03-13] MEDS: atorvaSTATin 10 MG Tab PO SCH (20:09)
[2023-03-13] MEDS: Acetaminophen 325 MG Tab PO PRN (20:10)
[2023-03-13] MEDS: Budesonide 0.5 MG/2 ML Neb Susp INH SCH (20:11)
[2023-03-13] MEDS ORDERED: Budesonide 0.5 MG/2 ML Neb Susp INH SCH (21:00)
[2023-03-13] MEDS ORDERED: atorvaSTATin 10 MG Tab PO SCH (21:00)
[2023-03-13] MEDS ORDERED: Sodium Chloride 1 GM Tab PO SCH ×2 (21:00)
[2023-03-13] MEDS ORDERED: Gabapentin 100 MG Cap PO SCH (21:00)
[2023-03-13] MEDS ORDERED: traZODone 50 MG Tab PO SCH (21:00)
[2023-03-14] MEDS: traMADol 50 MG Tab PO PRN ×3 (05:03→23:08)
[2023-03-14] MEDS: Levothyroxine 75 MCG Tab PO SCH (06:22)
[2023-03-14] MEDS: Budesonide 0.5 MG/2 ML Neb Susp INH SCH (06:23)
[2023-03-14] MEDS: Acetaminophen 325 MG Tab PO PRN (06:23)
[2023-03-14] MEDS ORDERED: Levothyroxine 75 MCG Tab PO SCH (07:00)
[2023-03-14 07:02] LABS: BASOPHILS PERCENT AUTO 0.4 % (0.2-1.2); EOSINOPHILS ABSOLUTE AUTO 0.3 x10^3/uL (0.0-0.5); EOSINOPHILS PERCENT AUTO 5.8 % (0.0-4.0); HEMATOCRIT 35.8 % (33.0-47.0); IMMATURE GRAN ABSOLUTE AUTO 0.01 x10^3/uL (0.00-0.07); LYMPHOCYTES ABSOLUTE AUTO 1.1 x10^3/uL (1.0-4.8); LYMPHOCYTES PERCENT AUTO 21.2 % (25.0-50.0); MEAN CORPUSCULAR HGB CONC 33.5 g/dL (32.0-36.0); MEAN CORPUSCULAR VOLUME 95.5 fL (78.0-93.0); MONOCYTES ABSOLUTE AUTO 0.5 x10^3/uL (0.0-0.8); MONOCYTES PERCENT AUTO 9.1 % (2.0-11.0); NEUTROPHILS ABSOLUTE AUTO 3.2 x10^3/uL (1.8-7.7); NEUTROPHILS PERCENT AUTO 63.3 % (50.0-80.0); PLATELET COUNT,PLT 216 x10^3/uL (130-400); RED BLOOD CELL COUNT 3.75 x10^6/uL (4.00-5.50)
[2023-03-14 07:18] LABS: A/G RATIO 0.97; BILIRUBIN TOTAL 1.4 mg/dL (0.2-1.0); CREATININE 0.6 mg/dL (0.55-1.02); EST CRCL DRUG DOSING (CG) 58.12 mL/min; POTASSIUM,K 4.4 mmol/L (3.5-5.1); PROTEIN TOTAL,TP 6.1 g/dL (6.4-8.2)
[2023-03-14 07:24] LABS: ANION GAP 9.4 mmol/L (5-15)
[2023-03-14] MEDS ORDERED: Non-Formulary Medication 1 Each (Rivaroxaban [Xarelto] 20 MG Tablet) PO SCH (09:00)
[2023-03-14] MEDS ORDERED: Non-Formulary Medication 1 Each (Cholecalciferol (Vitamin D3) [Vitamin D3] 2,000 UNIT Cap) PO SCH (09:00)
[2023-03-14] MEDS ORDERED: Non-Formulary Medication 1 Each (Losartan [Cozaar] 100 MG Tablet) PO SCH (09:00)
[2023-03-14] MEDS ORDERED: FLUoxetine 20 MG Cap PO SCH (09:00)
[2023-03-14] MEDS ORDERED: Polyethylene Glycol 3350 Powder 17 GM Packet PO SCH (09:00)
[2023-03-14] MEDS: Polyethylene Glycol 3350 Powder 17 GM Packet PO SCH (09:00)
[2023-03-14] MEDS: Sodium Chloride 1 GM Tab PO SCH (09:01)
[2023-03-14] MEDS: Cholecalciferol (Vitamin D3) 25 MCG Tab PO SCH (09:02)
[2023-03-14] MEDS: Acetaminophen 650 MG Tab.ER PO SCH ×2 (09:02→17:36)
[2023-03-14] MEDS: Losartan 50 MG Tab PO SCH (09:03)
[2023-03-14] MEDS: Rivaroxaban 10 MG Tab PO SCH (09:03)
[2023-03-14] MEDS: Gabapentin 100 MG Cap PO SCH ×2 (09:03→20:37)
[2023-03-14] MEDS: FLUoxetine 20 MG Cap PO SCH (09:03)
[2023-03-14] MEDS: traZODone 50 MG Tab PO SCH (20:37)
[2023-03-14] MEDS: atorvaSTATin 10 MG Tab PO SCH (20:37)
[2023-03-15] MEDS: Acetaminophen 650 MG Tab.ER PO SCH ×3 (01:46→16:05)
[2023-03-15] MEDS: Levothyroxine 75 MCG Tab PO SCH (06:07)
[2023-03-15] MEDS: Acetaminophen 325 MG Tab PO PRN (06:09)
[2023-03-15] MEDS: Gabapentin 100 MG Cap PO SCH ×2 (08:30→20:31)
[2023-03-15] MEDS: Polyethylene Glycol 3350 Powder 17 GM Packet PO SCH (08:30)
[2023-03-15] MEDS: Rivaroxaban 10 MG Tab PO SCH (08:30)
[2023-03-15] MEDS: Losartan 50 MG Tab PO SCH (08:30)
[2023-03-15] MEDS: FLUoxetine 20 MG Cap PO SCH (08:30)
[2023-03-15] MEDS: Cholecalciferol (Vitamin D3) 25 MCG Tab PO SCH (08:30)
[2023-03-15] MEDS: Sodium Chloride 1 GM Tab PO SCH (08:31)
[2023-03-15] MEDS: traZODone 50 MG Tab PO SCH (20:30)
[2023-03-15] MEDS: atorvaSTATin 10 MG Tab PO SCH (20:31)
[2023-03-15] MEDS: traMADol 50 MG Tab PO PRN (20:40)
[2023-03-16] MEDS: Acetaminophen 650 MG Tab.ER PO SCH ×3 (01:59→16:38)
[2023-03-16] MEDS: traMADol 50 MG Tab PO PRN (06:17)
[2023-03-16] MEDS: Levothyroxine 75 MCG Tab PO SCH (06:17)
[2023-03-16] MEDS: FLUoxetine 20 MG Cap PO SCH (08:24)
[2023-03-16] MEDS: Sodium Chloride 1 GM Tab PO SCH (08:24)
[2023-03-16] MEDS: Polyethylene Glycol 3350 Powder 17 GM Packet PO SCH (08:24)
[2023-03-16] MEDS: Rivaroxaban 10 MG Tab PO SCH (08:25)
[2023-03-16] MEDS: Losartan 50 MG Tab PO SCH (08:25)
[2023-03-16] MEDS: Gabapentin 100 MG Cap PO SCH ×2 (08:25→20:47)
[2023-03-16] MEDS: Cholecalciferol (Vitamin D3) 25 MCG Tab PO SCH (08:25)
[2023-03-16] MEDS: traZODone 50 MG Tab PO SCH (20:45)
[2023-03-16] MEDS: Acetaminophen 325 MG Tab PO PRN (20:46)
[2023-03-16] MEDS: atorvaSTATin 10 MG Tab PO SCH (20:47)
[2023-03-17] MEDS: Acetaminophen 650 MG Tab.ER PO SCH ×3 (02:00→17:54)
[2023-03-17] MEDS: traMADol 50 MG Tab PO PRN ×2 (04:13→11:05)
[2023-03-17] MEDS: Levothyroxine 75 MCG Tab PO SCH (06:44)
[2023-03-17 06:57] LABS: CALCIUM 8.9 mg/dL (8.5-10.1); CREATININE 0.6 mg/dL (0.55-1.02); EST CRCL DRUG DOSING (CG) 58.12 mL/min; POTASSIUM,K 4.2 mmol/L (3.5-5.1)
[2023-03-17 07:14] LABS: ANION GAP 7.2 mmol/L (5-15)
[2023-03-17] MEDS: FLUoxetine 20 MG Cap PO SCH (08:18)
[2023-03-17] MEDS: Sodium Chloride 1 GM Tab PO SCH ×2 (08:18→20:37)
[2023-03-17] MEDS: Cholecalciferol (Vitamin D3) 25 MCG Tab PO SCH (08:20)
[2023-03-17] MEDS: Rivaroxaban 10 MG Tab PO SCH (08:20)
[2023-03-17] MEDS: Gabapentin 100 MG Cap PO SCH ×2 (08:20→20:37)
[2023-03-17] MEDS: Polyethylene Glycol 3350 Powder 17 GM Packet PO SCH (08:21)
[2023-03-17] MEDS: Losartan 50 MG Tab PO SCH (08:21)
[2023-03-17] MEDS: ALPRAZolam 0.25 MG Tab PO PRN (11:05)
[2023-03-17] MEDS: traZODone 50 MG Tab PO SCH (20:36)
[2023-03-17] MEDS: atorvaSTATin 10 MG Tab PO SCH (20:37)
[2023-03-18] MEDS: Acetaminophen 650 MG Tab.ER PO SCH ×3 (00:19→17:42)
[2023-03-18] MEDS: Levothyroxine 75 MCG Tab PO SCH (06:24)
[2023-03-18] MEDS: Cholecalciferol (Vitamin D3) 25 MCG Tab PO SCH (09:06)
[2023-03-18] MEDS: Polyethylene Glycol 3350 Powder 17 GM Packet PO SCH (09:07)
[2023-03-18] MEDS: Gabapentin 100 MG Cap PO SCH ×2 (09:07→20:57)
[2023-03-18] MEDS: Sodium Chloride 1 GM Tab PO SCH ×2 (09:07→20:57)
[2023-03-18] MEDS: FLUoxetine 20 MG Cap PO SCH (09:07)
[2023-03-18] MEDS: Rivaroxaban 10 MG Tab PO SCH (09:07)
[2023-03-18] MEDS: Losartan 50 MG Tab PO SCH (09:07)
[2023-03-18] MEDS: atorvaSTATin 10 MG Tab PO SCH (20:57)
[2023-03-18] MEDS: traZODone 50 MG Tab PO SCH (20:57)
[2023-03-18] MEDS: traMADol 50 MG Tab PO PRN (21:07)
[2023-03-18] MEDS: ALPRAZolam 0.25 MG Tab PO PRN (23:51)
[2023-03-19] MEDS: Levothyroxine 75 MCG Tab PO SCH (06:19)
[2023-03-19] MEDS: Cholecalciferol (Vitamin D3) 25 MCG Tab PO SCH (09:07)
[2023-03-19] MEDS: Acetaminophen 650 MG Tab.ER PO SCH ×3 (09:07→17:41)
[2023-03-19] MEDS: Sodium Chloride 1 GM Tab PO SCH ×2 (09:07→20:26)
[2023-03-19] MEDS: Rivaroxaban 10 MG Tab PO SCH (09:07)
[2023-03-19] MEDS: FLUoxetine 20 MG Cap PO SCH (09:07)
[2023-03-19] MEDS: Gabapentin 100 MG Cap PO SCH ×2 (09:07→20:26)
[2023-03-19] MEDS: Losartan 50 MG Tab PO SCH (09:07)
[2023-03-19] MEDS: Polyethylene Glycol 3350 Powder 17 GM Packet PO SCH (09:08)
[2023-03-19 15:57] LABS: APPEARANCE,URINE SLIGHTLY CLOUDY (CLEAR); BILIRUBIN,URINE NEGATIVE (NEGATIVE); COLOR,URINE YELLOW (YELLOW); GLUCOSE,URINE NEGATIVE (NEGATIVE); KETONES,URINE NEGATIVE (NEGATIVE); LEUKOCYTE ESTERASE,URINE SMALL (NEGATIVE); NITRITE,URINE NEGATIVE (NEGATIVE); OCCULT BLOOD,URINE TRACE-LYSED (NEGATIVE); PROTEIN,URINE NEGATIVE (NEGATIVE); UROBILINOGEN,URINE 0.2 EU/dL (0.2)
[2023-03-19 15:58] LABS: BACTERIA,URINE OCCASIONAL /HPF (NOT SEEN); WBC,URINE 20-30 /HPF (NOT SEEN)
[2023-03-19 15:59] LABS: MUCUS,URINE OCCASIONAL /LPF (NOT SEEN); SQUAMOUS EPITHELIAL CELLS,UR RARE /HPF (NOT SEEN)
[2023-03-19] MEDS: Nitrofurantoin Monohydrate/Macrocrystalline 100 MG Cap PO SCH (18:32)
[2023-03-19] MEDS: traMADol 50 MG Tab PO PRN (20:26)
[2023-03-19] MEDS: atorvaSTATin 10 MG Tab PO SCH (20:28)
[2023-03-19] MEDS: traZODone 50 MG Tab PO SCH (20:28)
[2023-03-19] MEDS: ALPRAZolam 0.25 MG Tab PO PRN (22:21)
[2023-03-20] MEDS: Acetaminophen 650 MG Tab.ER PO SCH ×3 (00:08→17:52)
[2023-03-20] MEDS: Levothyroxine 75 MCG Tab PO SCH (06:41)
[2023-03-20] MEDS: FLUoxetine 20 MG Cap PO SCH (08:31)
[2023-03-20] MEDS: Cholecalciferol (Vitamin D3) 25 MCG Tab PO SCH (08:31)
[2023-03-20] MEDS: Losartan 50 MG Tab PO SCH (08:31)
[2023-03-20] MEDS: Gabapentin 100 MG Cap PO SCH ×2 (08:32→20:13)
[2023-03-20] MEDS: Sodium Chloride 1 GM Tab PO SCH ×2 (08:32→20:13)
[2023-03-20] MEDS: Nitrofurantoin Monohydrate/Macrocrystalline 100 MG Cap PO SCH ×2 (08:32→20:14)
[2023-03-20] MEDS: Polyethylene Glycol 3350 Powder 17 GM Packet PO SCH ×2 (08:32→08:36)
[2023-03-20] MEDS: Rivaroxaban 10 MG Tab PO SCH (08:32)
[2023-03-20] MEDS ORDERED: FLU (Fluad Quad) 2023-24(65UP)/MF59C/PF 60 MCG/0.5 ML Syringe IM ONE (18:45)
[2023-03-20] MEDS: traZODone 50 MG Tab PO SCH (20:14)
[2023-03-20] MEDS: atorvaSTATin 10 MG Tab PO SCH (20:14)
[2023-03-21] MEDS: Acetaminophen 650 MG Tab.ER PO SCH ×3 (00:28→17:11)
[2023-03-21] MEDS: ALPRAZolam 0.25 MG Tab PO PRN (00:31)
[2023-03-21] MEDS: Levothyroxine 75 MCG Tab PO SCH (06:27)
[2023-03-21 07:15] LABS: BASOPHILS PERCENT AUTO 0.3 % (0.2-1.2); EOSINOPHILS ABSOLUTE AUTO 0.3 x10^3/uL (0.0-0.5); EOSINOPHILS PERCENT AUTO 4.3 % (0.0-4.0); HEMATOCRIT 33.7 % (33.0-47.0); HEMOGLOBIN 11.6 g/dL (12.0-16.0); IMMATURE GRAN ABSOLUTE AUTO 0.01 x10^3/uL (0.00-0.07); LYMPHOCYTES ABSOLUTE AUTO 0.7 x10^3/uL (1.0-4.8); LYMPHOCYTES PERCENT AUTO 11.1 % (25.0-50.0); MEAN CORPUSCULAR HEMOGLOBIN 32.4 pg (26.0-32.0); MEAN CORPUSCULAR HGB CONC 34.4 g/dL (32.0-36.0); MEAN CORPUSCULAR VOLUME 94.1 fL (78.0-93.0); MONOCYTES ABSOLUTE AUTO 0.5 x10^3/uL (0.0-0.8); MONOCYTES PERCENT AUTO 7.1 % (2.0-11.0); NEUTROPHILS ABSOLUTE AUTO 4.9 x10^3/uL (1.8-7.7); PLATELET COUNT,PLT 288 x10^3/uL (130-400); RED BLOOD CELL COUNT 3.58 x10^6/uL (4.00-5.50); WHITE BLOOD CELL COUNT,WBC 6.3 x10^3/uL (4.0-10.0)
[2023-03-21 07:29] LABS: CALCIUM 9.1 mg/dL (8.5-10.1); CREATININE 0.6 mg/dL (0.55-1.02); EST CRCL DRUG DOSING (CG) 58.12 mL/min
[2023-03-21] MEDS ORDERED: FLU (Fluad Quad) 2023-24(65UP)/MF59C/PF 60 MCG/0.5 ML Syringe IM ONE (08:00)
[2023-03-21] MEDS: Polyethylene Glycol 3350 Powder 17 GM Packet PO SCH (08:39)
[2023-03-21] MEDS: Sodium Chloride 1 GM Tab PO SCH ×2 (08:41→21:28)
[2023-03-21] MEDS: Gabapentin 100 MG Cap PO SCH ×2 (08:41→21:29)
[2023-03-21] MEDS: Rivaroxaban 10 MG Tab PO SCH (08:41)
[2023-03-21] MEDS: Cholecalciferol (Vitamin D3) 25 MCG Tab PO SCH (08:41)
[2023-03-21] MEDS: Losartan 50 MG Tab PO SCH (08:41)
[2023-03-21] MEDS: Nitrofurantoin Monohydrate/Macrocrystalline 100 MG Cap PO SCH ×2 (08:41→21:28)
[2023-03-21] MEDS: FLUoxetine 20 MG Cap PO SCH (08:42)
[2023-03-21] MEDS: traMADol 50 MG Tab PO PRN (21:28)
[2023-03-21] MEDS: atorvaSTATin 10 MG Tab PO SCH (21:28)
[2023-03-21] MEDS: traZODone 50 MG Tab PO SCH (21:29)
[2023-03-22] MEDS: Acetaminophen 650 MG Tab.ER PO SCH ×3 (00:57→17:29)
[2023-03-22] MEDS: ALPRAZolam 0.25 MG Tab PO PRN (00:57)
[2023-03-22] MEDS: Levothyroxine 75 MCG Tab PO SCH ×2 (05:37→07:07)
[2023-03-22] MEDS: Losartan 50 MG Tab PO SCH ×2 (05:44→08:21)
[2023-03-22] MEDS: Cholecalciferol (Vitamin D3) 25 MCG Tab PO SCH (09:42)
[2023-03-22] MEDS: Rivaroxaban 10 MG Tab PO SCH (09:43)
[2023-03-22] MEDS: Gabapentin 100 MG Cap PO SCH ×2 (09:44→20:17)
[2023-03-22] MEDS: Nitrofurantoin Monohydrate/Macrocrystalline 100 MG Cap PO SCH ×2 (09:45→20:18)
[2023-03-22] MEDS: FLUoxetine 20 MG Cap PO SCH (09:45)
[2023-03-22] MEDS: Sodium Chloride 1 GM Tab PO SCH ×2 (09:45→20:18)
[2023-03-22] MEDS: Polyethylene Glycol 3350 Powder 17 GM Packet PO SCH (09:47)
[2023-03-22] MEDS: traMADol 50 MG Tab PO PRN (20:18)
[2023-03-22] MEDS: traZODone 50 MG Tab PO SCH (20:18)
[2023-03-22] MEDS: atorvaSTATin 10 MG Tab PO SCH (20:18)
[2023-03-23] MEDS: ALPRAZolam 0.25 MG Tab PO PRN ×2 (00:51→22:50)
[2023-03-23] MEDS: Acetaminophen 650 MG Tab.ER PO SCH ×3 (00:51→17:08)
[2023-03-23] MEDS: traMADol 50 MG Tab PO PRN ×2 (05:01→20:43)
[2023-03-23] MEDS: Levothyroxine 75 MCG Tab PO SCH ×2 (05:02→07:01)
[2023-03-23] MEDS: Nitrofurantoin Monohydrate/Macrocrystalline 100 MG Cap PO SCH ×2 (09:00→20:41)
[2023-03-23] MEDS: Cholecalciferol (Vitamin D3) 25 MCG Tab PO SCH (09:00)
[2023-03-23] MEDS: FLUoxetine 20 MG Cap PO SCH (09:01)
[2023-03-23] MEDS: Sodium Chloride 1 GM Tab PO SCH ×2 (09:01→20:41)
[2023-03-23] MEDS: Losartan 50 MG Tab PO SCH (09:02)
[2023-03-23] MEDS: Rivaroxaban 10 MG Tab PO SCH (09:04)
[2023-03-23] MEDS: Gabapentin 100 MG Cap PO SCH ×2 (09:05→20:43)
[2023-03-23] MEDS: Polyethylene Glycol 3350 Powder 17 GM Packet PO SCH (09:05)
[2023-03-23] MEDS: amLODIPine 2.5 MG Tab PO SCH (20:41)
[2023-03-23] MEDS: atorvaSTATin 10 MG Tab PO SCH (20:41)
[2023-03-23] MEDS: traZODone 50 MG Tab PO SCH (20:42)
[2023-03-24] MEDS: Acetaminophen 650 MG Tab.ER PO SCH ×3 (00:59→16:31)
[2023-03-24] MEDS: Levothyroxine 75 MCG Tab PO SCH (06:10)
[2023-03-24] MEDS: FLUoxetine 20 MG Cap PO SCH ×2 (06:29→10:31)
[2023-03-24] MEDS: Cholecalciferol (Vitamin D3) 25 MCG Tab PO SCH ×2 (06:29→10:32)
[2023-03-24] MEDS: Rivaroxaban 10 MG Tab PO SCH ×2 (06:29→10:32)
[2023-03-24] MEDS: Gabapentin 100 MG Cap PO SCH ×3 (06:29→20:32)
[2023-03-24] MEDS: Losartan 50 MG Tab PO SCH ×2 (06:30→10:31)
[2023-03-24] MEDS: Nitrofurantoin Monohydrate/Macrocrystalline 100 MG Cap PO SCH ×2 (06:31→10:31)
[2023-03-24] MEDS: traMADol 50 MG Tab PO PRN ×2 (06:31→20:30)
[2023-03-24] MEDS: ALPRAZolam 0.25 MG Tab PO PRN (06:31)
[2023-03-24] MEDS: Polyethylene Glycol 3350 Powder 17 GM Packet PO SCH (10:31)
[2023-03-24] MEDS: Sodium Chloride 1 GM Tab PO SCH ×2 (10:31→20:30)
[2023-03-24] MEDS: traZODone 50 MG Tab PO SCH (20:32)
[2023-03-24] MEDS: atorvaSTATin 10 MG Tab PO SCH (20:32)
[2023-03-24] MEDS: amLODIPine 2.5 MG Tab PO SCH (20:32)
[2023-03-25] MEDS: Acetaminophen 650 MG Tab.ER PO SCH ×3 (02:00→16:24)
[2023-03-25] MEDS: Levothyroxine 75 MCG Tab PO SCH (06:10)
[2023-03-25] MEDS: Polyethylene Glycol 3350 Powder 17 GM Packet PO SCH (09:17)
[2023-03-25] MEDS: Gabapentin 100 MG Cap PO SCH ×2 (09:19→21:57)
[2023-03-25] MEDS: Rivaroxaban 10 MG Tab PO SCH (09:19)
[2023-03-25] MEDS: Sodium Chloride 1 GM Tab PO SCH ×2 (09:19→21:56)
[2023-03-25] MEDS: FLUoxetine 20 MG Cap PO SCH (09:19)
[2023-03-25] MEDS: Cholecalciferol (Vitamin D3) 25 MCG Tab PO SCH (09:19)
[2023-03-25] MEDS: Losartan 50 MG Tab PO SCH (09:20)
[2023-03-25] MEDS: traMADol 50 MG Tab PO PRN (09:24)
[2023-03-25] MEDS: atorvaSTATin 10 MG Tab PO SCH (21:57)
[2023-03-25] MEDS: amLODIPine 2.5 MG Tab PO SCH (21:57)
[2023-03-25] MEDS: ALPRAZolam 0.25 MG Tab PO PRN (21:57)
[2023-03-25] MEDS: traZODone 50 MG Tab PO SCH (21:57)
[2023-03-26] MEDS: Acetaminophen 650 MG Tab.ER PO SCH ×3 (02:00→17:13)
[2023-03-26] MEDS: Levothyroxine 75 MCG Tab PO SCH (06:16)
[2023-03-26] MEDS: Polyethylene Glycol 3350 Powder 17 GM Packet PO SCH (08:45)
[2023-03-26] MEDS: FLUoxetine 20 MG Cap PO SCH (08:45)
[2023-03-26] MEDS: Cholecalciferol (Vitamin D3) 25 MCG Tab PO SCH (08:45)
[2023-03-26] MEDS: Sodium Chloride 1 GM Tab PO SCH ×2 (08:46→20:12)
[2023-03-26] MEDS: Rivaroxaban 10 MG Tab PO SCH (08:46)
[2023-03-26] MEDS: Gabapentin 100 MG Cap PO SCH ×2 (08:46→20:10)
[2023-03-26] MEDS: Losartan 50 MG Tab PO SCH (08:47)
[2023-03-26] MEDS: atorvaSTATin 10 MG Tab PO SCH (20:10)
[2023-03-26] MEDS: traZODone 50 MG Tab PO SCH (20:11)
[2023-03-26] MEDS: amLODIPine 2.5 MG Tab PO SCH (20:12)
[2023-03-27] MEDS: Acetaminophen 650 MG Tab.ER PO SCH ×3 (01:11→16:22)
[2023-03-27] MEDS: Levothyroxine 75 MCG Tab PO SCH (06:15)
[2023-03-27 07:47] LABS: CALCIUM 9.3 mg/dL (8.5-10.1); CREATININE 0.7 mg/dL (0.55-1.02); EST CRCL DRUG DOSING (CG) 49.82 mL/min; POTASSIUM,K 4.6 mmol/L (3.5-5.1)
[2023-03-27 07:48] LABS: ANION GAP 11.6 mmol/L (5-15)
[2023-03-27] MEDS: Losartan 50 MG Tab PO SCH (08:50)
[2023-03-27] MEDS: Gabapentin 100 MG Cap PO SCH ×2 (08:50→21:31)
[2023-03-27] MEDS: FLUoxetine 20 MG Cap PO SCH (08:52)
[2023-03-27] MEDS: Sodium Chloride 1 GM Tab PO SCH ×2 (08:52→21:31)
[2023-03-27] MEDS: Rivaroxaban 10 MG Tab PO SCH (08:53)
[2023-03-27] MEDS: Cholecalciferol (Vitamin D3) 25 MCG Tab PO SCH (08:53)
[2023-03-27] MEDS: Polyethylene Glycol 3350 Powder 17 GM Packet PO SCH (08:54)
[2023-03-27] MEDS: traZODone 50 MG Tab PO SCH (21:30)
[2023-03-27] MEDS: atorvaSTATin 10 MG Tab PO SCH (21:31)
[2023-03-27] MEDS: amLODIPine 2.5 MG Tab PO SCH (21:32)
[2023-03-28] MEDS: ALPRAZolam 0.25 MG Tab PO PRN ×2 (00:12→23:20)
[2023-03-28] MEDS: Acetaminophen 650 MG Tab.ER PO SCH ×3 (00:12→17:44)
[2023-03-28] MEDS: Levothyroxine 75 MCG Tab PO SCH (06:10)
[2023-03-28] MEDS: FLUoxetine 20 MG Cap PO SCH (08:20)
[2023-03-28] MEDS: Losartan 50 MG Tab PO SCH (08:20)
[2023-03-28] MEDS: Rivaroxaban 10 MG Tab PO SCH (08:23)
[2023-03-28] MEDS: Gabapentin 100 MG Cap PO SCH ×2 (08:23→20:54)
[2023-03-28] MEDS: Cholecalciferol (Vitamin D3) 25 MCG Tab PO SCH (08:23)
[2023-03-28] MEDS: Sodium Chloride 1 GM Tab PO SCH ×2 (08:23→20:54)
[2023-03-28] MEDS: Polyethylene Glycol 3350 Powder 17 GM Packet PO SCH (09:53)
[2023-03-28] MEDS: traZODone 50 MG Tab PO SCH (20:54)
[2023-03-28] MEDS: atorvaSTATin 10 MG Tab PO SCH (20:54)
[2023-03-28] MEDS: amLODIPine 2.5 MG Tab PO SCH (20:54)
[2023-03-29] MEDS: Acetaminophen 650 MG Tab.ER PO SCH ×3 (01:18→17:48)
[2023-03-29] MEDS: Levothyroxine 75 MCG Tab PO SCH (06:16)
[2023-03-29] MEDS: Polyethylene Glycol 3350 Powder 17 GM Packet PO SCH (08:01)
[2023-03-29] MEDS: Cholecalciferol (Vitamin D3) 25 MCG Tab PO SCH (08:02)
[2023-03-29] MEDS: Sodium Chloride 1 GM Tab PO SCH ×2 (08:02→20:31)
[2023-03-29] MEDS: Rivaroxaban 10 MG Tab PO SCH (08:03)
[2023-03-29] MEDS: Losartan 50 MG Tab PO SCH (08:03)
[2023-03-29] MEDS: Gabapentin 100 MG Cap PO SCH ×2 (08:03→20:30)
[2023-03-29] MEDS: FLUoxetine 20 MG Cap PO SCH (08:03)
[2023-03-29 08:35] LABS: BASOPHILS PERCENT AUTO 1.2 % (0.2-1.2); EOSINOPHILS ABSOLUTE AUTO 0.1 x10^3/uL (0.0-0.5); EOSINOPHILS PERCENT AUTO 4.1 % (0.0-4.0); HEMATOCRIT 39.9 % (33.0-47.0); HEMOGLOBIN 13.2 g/dL (12.0-16.0); IMMATURE GRAN ABSOLUTE AUTO 0.02 x10^3/uL (0.00-0.07); LYMPHOCYTES ABSOLUTE AUTO 0.9 x10^3/uL (1.0-4.8); LYMPHOCYTES PERCENT AUTO 26.1 % (25.0-50.0); MEAN CORPUSCULAR HEMOGLOBIN 31.7 pg (26.0-32.0); MEAN CORPUSCULAR HGB CONC 33.1 g/dL (32.0-36.0); MEAN CORPUSCULAR VOLUME 95.7 fL (78.0-93.0); MONOCYTES ABSOLUTE AUTO 0.2 x10^3/uL (0.0-0.8); MONOCYTES PERCENT AUTO 6.7 % (2.0-11.0); NEUTROPHILS ABSOLUTE AUTO 2.1 x10^3/uL (1.8-7.7); NEUTROPHILS PERCENT AUTO 61.3 % (50.0-80.0); PLATELET COUNT,PLT 337 x10^3/uL (130-400); RED BLOOD CELL COUNT 4.17 x10^6/uL (4.00-5.50); WHITE BLOOD CELL COUNT,WBC 3.5 x10^3/uL (4.0-10.0)
[2023-03-29 08:49] LABS: CALCIUM 9.3 mg/dL (8.5-10.1); CREATININE 0.7 mg/dL (0.55-1.02); EST CRCL DRUG DOSING (CG) 49.82 mL/min
[2023-03-29] MEDS: atorvaSTATin 10 MG Tab PO SCH (20:30)
[2023-03-29] MEDS: amLODIPine 2.5 MG Tab PO SCH (20:31)
[2023-03-29] MEDS: traZODone 50 MG Tab PO SCH (20:32)
[2023-03-30] MEDS: Acetaminophen 650 MG Tab.ER PO SCH ×3 (03:23→16:49)
[2023-03-30] MEDS: Levothyroxine 75 MCG Tab PO SCH (06:42)
[2023-03-30] MEDS: Losartan 50 MG Tab PO SCH (08:22)
[2023-03-30] MEDS: Cholecalciferol (Vitamin D3) 25 MCG Tab PO SCH (08:23)
[2023-03-30] MEDS: FLUoxetine 20 MG Cap PO SCH (08:25)
[2023-03-30] MEDS: Sodium Chloride 1 GM Tab PO SCH ×2 (08:25→21:31)
[2023-03-30] MEDS: Gabapentin 100 MG Cap PO SCH ×2 (08:26→21:32)
[2023-03-30] MEDS: Rivaroxaban 10 MG Tab PO SCH (08:26)
[2023-03-30] MEDS: Polyethylene Glycol 3350 Powder 17 GM Packet PO SCH (08:28)
[2023-03-30] MEDS: amLODIPine 2.5 MG Tab PO SCH (21:32)
[2023-03-30] MEDS: traZODone 50 MG Tab PO SCH (21:33)
[2023-03-30] MEDS: atorvaSTATin 10 MG Tab PO SCH (21:33)
[2023-03-30] MEDS: ALPRAZolam 0.25 MG Tab PO PRN (22:26)
[2023-03-31] MEDS: Acetaminophen 650 MG Tab.ER PO SCH ×2 (01:49→08:49)
[2023-03-31] MEDS: Levothyroxine 75 MCG Tab PO SCH (06:32)
[2023-03-31 06:51] VITALS: PULSE 57
[2023-03-31] MEDS: Rivaroxaban 10 MG Tab PO SCH (08:49)
[2023-03-31] MEDS: Gabapentin 100 MG Cap PO SCH (08:49)
[2023-03-31] MEDS: Polyethylene Glycol 3350 Powder 17 GM Packet PO SCH (08:50)
[2023-03-31] MEDS: Sodium Chloride 1 GM Tab PO SCH (08:50)
[2023-03-31] MEDS: FLUoxetine 20 MG Cap PO SCH (08:50)
[2023-03-31] MEDS: Cholecalciferol (Vitamin D3) 25 MCG Tab PO SCH (08:50)
[2023-03-31] MEDS: Losartan 50 MG Tab PO SCH (08:51)
[2023-03-31 08:52] VITALS: BP 145/83
== END 2023-03-31 11:40 | DRG 560 ==
LOC: VM.MS 11:11
PROVIDERS: ADMIT Family Medicine; ATTEND Family Medicine
DX: S52.302D Unspecified fracture of shaft of left radius, subsequent encounter for closed fracture with routine healing (principal); E87.1 Hypo-osmolality and hyponatremia; N39.0 Urinary tract infection, site not specified; I48.20 Chronic atrial fibrillation, unspecified; I10 Essential (primary) hypertension; G89.29 Other chronic pain; M54.50 Low back pain, unspecified; F41.9 Anxiety disorder, unspecified; J45.909 Unspecified asthma, uncomplicated; E03.9 Hypothyroidism, unspecified; Z79.899 Other long term (current) drug therapy; S62.308D Unspecified fracture of other metacarpal bone, subsequent encounter for fracture with routine healing
CPT/HCPCS: 36415; 80048; 80053; 81001; 81003; 85018; 85025; 87086; 87088; 87186; 90694; 94640; 95851-GO; 97110-GP; 97116-GP; 97165-GO; 97530-GO; 97535-GO; A9270-GY; G0008; J3490

== ENCOUNTER 2025-01-08 11:15 | Emergency (ER) | payer MEDICARE, MEDICAID ==
[2025-01-08 11:47] LABS: BASOPHILS ABSOLUTE AUTO 0.0 x10^3/uL (0.0-0.2); BASOPHILS PERCENT AUTO 0.1 % (0.2-1.2); EOSINOPHILS ABSOLUTE AUTO 0.0 x10^3/uL (0.0-0.5); EOSINOPHILS PERCENT AUTO 0.0 % (0.0-4.0); IMMATURE GRAN ABSOLUTE AUTO 0.01 x10^3/uL (0.00-0.07); IMMATURE GRAN PERCENT AUTO 0.10 % (0.00-0.43); LYMPHOCYTES ABSOLUTE AUTO 0.6 x10^3/uL (1.0-4.8); LYMPHOCYTES PERCENT AUTO 5.8 % (25.0-50.0); MONOCYTES ABSOLUTE AUTO 0.6 x10^3/uL (0.0-0.8); MONOCYTES PERCENT AUTO 5.9 % (2.0-11.0); NEUTROPHILS ABSOLUTE AUTO 9.5 x10^3/uL (1.8-7.7); NEUTROPHILS PERCENT AUTO 88.1 % (50.0-80.0); PLATELET COUNT,PLT 224 x10^3/uL (130-400); RED BLOOD CELL COUNT 4.10 x10^6/uL (4.00-5.50); WHITE BLOOD CELL COUNT,WBC 10.7 x10^3/uL (4.0-10.0)
[2025-01-08 11:49] LABS: APPEARANCE,URINE TURBID (CLEAR); GLUCOSE,URINE NEGATIVE (NEGATIVE); OCCULT BLOOD,URINE LARGE (NEGATIVE)
[2025-01-08 12:00] LABS: SQUAMOUS EPITHELIAL CELLS,UR RARE /HPF (NOT SEEN)
[2025-01-08 12:21] LABS: INR 1.1 (0.9-1.1); PTT,PARTIAL THROMBOPLSTIN TIME 26.5 SEC (23.5-33.2)
[2025-01-08 12:22] LABS: A/G RATIO 1.06; ALANINE AMINOTRANSFERASE,ALT 15 U/L (14-59); ASPARTATE AMNIOTRANSFERASE,AST 20 U/L (15-37); BILIRUBIN TOTAL 1.1 mg/dL (0.2-1.0); BLOOD UREA NITROGEN,BUN 15 mg/dL (7-18); CARBON DIOXIDE,CO2 28 mmol/L (21-32); CHLORIDE,CL 98 mmol/L (98-107); CREATININE 0.9 mg/dL (0.55-1.02); GLUCOSE RANDOM 143 mg/dL (70-99); POTASSIUM,K 4.6 mmol/L (3.5-5.1); PROTEIN TOTAL,TP 7.0 g/dL (6.4-8.2); SODIUM,NA 137 mmol/L (136-145); TSH ULTRASENSITIVE 0.332 uIU/mL (0.358-3.74)
[2025-01-08 12:23] LABS: ESTIMATED GFR 62 mL/min (>=60)
[2025-01-08 12:29] LABS: LACTIC ACID 2.4 mmol/L (0.4-2.0)
[2025-01-08] MEDS: Lactated Ringers 1,000 ML IV ONE (12:34)
[2025-01-08] MEDS: Iopamidol 612 MG/ML 100 ML Bottle IVPUSH ONE (14:44)
[2025-01-08 15:58] VITALS: BP 149/95; PULSE 72
== END 2025-01-08 16:18 ==
LOC: VM.ED 11:15
DX: N39.0 Urinary tract infection, site not specified (principal); E78.00 Pure hypercholesterolemia, unspecified; I10 Essential (primary) hypertension; K21.9 Gastro-esophageal reflux disease without esophagitis; E11.9 Type 2 diabetes mellitus without complications; E03.9 Hypothyroidism, unspecified; Z88.8 Allergy status to other drugs, medicaments and biological substances; Z88.0 Allergy status to penicillin; Z91.041 Radiographic dye allergy status; Z88.2 Allergy status to sulfonamides; Z79.899 Other long term (current) drug therapy
CPT/HCPCS: 36415; 51701; 74022; 74177; 80053; 81001; 83605; 83735; 84443; 85025; 85610; 85730; 86140; 87040; 87086; 87088; 87186; 96361; 96374; 99284; 99285; J0696; J7120; Q9967

== ENCOUNTER 2025-01-09 11:39 | Emergency (ER) | payer MEDICARE, MEDICAID ==
[2025-01-09 12:49] LABS: BASOPHILS ABSOLUTE AUTO 0.0 x10^3/uL (0.0-0.2); BASOPHILS PERCENT AUTO 0.1 % (0.2-1.2); EOSINOPHILS ABSOLUTE AUTO 0.0 x10^3/uL (0.0-0.5); EOSINOPHILS PERCENT AUTO 0.0 % (0.0-4.0); IMMATURE GRAN ABSOLUTE AUTO 0.04 x10^3/uL (0.00-0.07); IMMATURE GRAN PERCENT AUTO 0.40 % (0.00-0.43); LYMPHOCYTES ABSOLUTE AUTO 0.8 x10^3/uL (1.0-4.8); LYMPHOCYTES PERCENT AUTO 7.9 % (25.0-50.0); MONOCYTES ABSOLUTE AUTO 0.8 x10^3/uL (0.0-0.8); MONOCYTES PERCENT AUTO 7.5 % (2.0-11.0); NEUTROPHILS ABSOLUTE AUTO 8.9 x10^3/uL (1.8-7.7); NEUTROPHILS PERCENT AUTO 84.1 % (50.0-80.0); PLATELET COUNT,PLT 211 x10^3/uL (130-400); RED BLOOD CELL COUNT 4.21 x10^6/uL (4.00-5.50); WHITE BLOOD CELL COUNT,WBC 10.5 x10^3/uL (4.0-10.0)
[2025-01-09 13:10] LABS: A/G RATIO 0.94; ALANINE AMINOTRANSFERASE,ALT 19.0 U/L (14-59); ASPARTATE AMNIOTRANSFERASE,AST 29.0 U/L (15-37); BILIRUBIN TOTAL 1.9 mg/dL (0.2-1.0); BLOOD UREA NITROGEN,BUN 11.0 mg/dL (7-18); CARBON DIOXIDE,CO2 24.0 mmol/L (21-32); CHLORIDE,CL 95.0 mmol/L (98-107); CREATININE 0.6 mg/dL (0.55-1.02); EST CRCL DRUG DOSING (CG) 54.64 mL/min; ESTIMATED GFR 87.0 mL/min (>=60); GLUCOSE RANDOM 147.0 mg/dL (70-99); POTASSIUM,K 3.8 mmol/L (3.5-5.1); PROTEIN TOTAL,TP 6.8 g/dL (6.4-8.2); SODIUM,NA 130.0 mmol/L (136-145)
[2025-01-09] MEDS: Magnesium Sulfate 2 GM/50 mL 2 GM in Premix Bag 1 BAG IV ONE (13:20)
[2025-01-09] MEDS: hydrALAZINE 20 MG/ML SDV IVPUSH ONE ×2 (13:35→14:46)
[2025-01-09] MEDS ORDERED: Factor IX Complex Human 1,000 UNIT VIAL ONE (14:49)
[2025-01-09] MEDS: HUM PROTHROMBIN CPLX(PCC)4FACT 2,000 UNIT IV ONE (14:49)
[2025-01-09] MEDS: niCARdipine/Normal Saline 20 MG in Premix Bag 1 BAG IV SCH (14:54)
[2025-01-09 15:41] VITALS: BP 135/68; PULSE 104
== END 2025-01-09 15:29 | disposition short-term general hospital (02) ==
LOC: VM.ED 11:39
DX: I60.9 Nontraumatic subarachnoid hemorrhage, unspecified (principal); I61.5 Nontraumatic intracerebral hemorrhage, intraventricular; I10 Essential (primary) hypertension; E78.00 Pure hypercholesterolemia, unspecified; J45.909 Unspecified asthma, uncomplicated; K21.9 Gastro-esophageal reflux disease without esophagitis; E11.9 Type 2 diabetes mellitus without complications; E03.9 Hypothyroidism, unspecified; Z90.49 Acquired absence of other specified parts of digestive tract; Z88.0 Allergy status to penicillin; Z88.1 Allergy status to other antibiotic agents; Z88.8 Allergy status to other drugs, medicaments and biological substances; Z79.01 Long term (current) use of anticoagulants; Z79.890 Hormone replacement therapy; Z79.899 Other long term (current) drug therapy
CPT/HCPCS: 36415; 70450; 80053; 83605; 83735; 85025; 96365; 96367; 96375; 99285-25; J0360; J0696; J3475; J3490; J7168